=== PATIENT | male | born 1980 | race Caucasian/White ===

== ENCOUNTER 2017-03-02 07:35 | Inpatient (IN) | payer OTHER ==
[~2017-03-02] VITALS: Ht 180.3 cm; Wt 119.3 kg
[2017-03-02] VITALS (11 sets, daily range): BP systolic 144–181; BP diastolic 25–105
[~2017-03-02 07:35] MED LIST: CATAFLAM50 MG PO; NAPROSYN500 MG PO; ROBAXIN750 MG PO; VICODIN 5/500 505 MG PO
--- NOTE | 2017-03-02 08:29 | NUR ---
324 ASPIRIN AND 1" NITRO PASTE (LEFT CHEST) ADMINITERED AT THIS TIME. PT RATES PAIN 6/10 AT THIS TIME.
[2017-03-02 08:35] LABS: HEMATOCRIT 46.2 % (42.0-52.0); MEAN CELL VOLUME 89.4 fl (80.0-94.0); MEAN CORPUSCULAR HGB 30.9 pg (27.0-31.0); MEAN CORPUSCULAR HGB CONC 34.6 g/dl (33.0-37.0); MEAN PLATELET VOLUME 9.1 fl (9.6-12.3); PLATELET COUNT AUTOMATED 318 10*3/uL (130-400); RED BLOOD COUNT 5.17 10*6/uL (4.50-5.90); RED CELL DISTRI WIDTH 13.4 % (0-14.5); WHITE BLOOD COUNT 18.8 10*3/uL (4.8-10.8)
--- NOTE | 2017-03-02 08:40 | NUR ---
PT STATES RATES CHEST PAIN 4/10 AT THIS TIME. PT STATES THAT "IT'S GETTING BETTER AFTER THE ASPIRIN AND NITRO PASTE.
[2017-03-02 08:44] LABS: ACT PARTIAL THROMBO TIME 22.8 SECONDS (20.8-31.5)
[2017-03-02 08:51] LABS: ALBUMIN 4.1 gm/dl (3.1-4.5); ALKALINE PHOSPHATASE 96 U/L (45-117); BUN 14 mg/dl (7-24); CHLORIDE 105 mmol/L (98-107); CREATININE 1.09 mg/dL (0.70-1.30); POTASSIUM 3.7 mmol/L (3.5-5.1); SGOT/AST 25 IU/L (3-35); SGPT/ALT 46 U/L (12-78); SODIUM 137 mmol/L (136-145); TOTAL PROTEIN 8.7 gm/dL (6.4-8.2)
[2017-03-02 08:52] LABS: TROPONIN I 0.016 ng/ml (<0.045)
--- NOTE | 2017-03-02 08:54 | NUR ---
BP PRIOR TO LOPRESSOR ADMINISTRATION IS 158/97 WITH HR OF 129.
[2017-03-02 08:55] LABS: BASOPHILS 2 % (0-1); TOTAL CELLS COUNTED 100 #CELLS
[2017-03-02 08:56] LABS: PLATELET SUFFICIENCY NORMAL (NORMAL)
--- NOTE | 2017-03-02 10:15 | NUR ---
Time: 1014 A 36 year old MALE admitted to under services of KATE RYAN DO. Pt. arrived via bed from ER. Chief complaint: CHEST PAIN. HAIM BLACKMON
--- NOTE | 2017-03-02 10:20 | NUR ---
PATIENT COMPLAINING OF MIDSTERNAL CHEST PRESSURE AND SHORTNESS OF BREATH. NOTIFIED LITO DARLING & ORDER OBTAINED FOR MORPHINE & CARIDOLOGY CONSULT. MORPHINE GIVEN@ THIS TIME & PAGED CARDIOLOGY.
--- NOTE | 2017-03-02 11:00 | NUR ---
PATIENT MUCH MORE RELAXED AT THIS TIME HR DOWN TO 110. BP 140/88.
[2017-03-02 11:21] LABS: BILIRUBIN 1+ (NEGATIVE); BLOOD 1+ (NEGATIVE); CLARITY CLEAR (CLEAR); COLOR YELLOW (YELLOW); GLUCOSE NEGATIVE (NEGATIVE); KETONE 2+ (NEGATIVE); LEUKO ESTERASE NEGATIVE (NEGATIVE); NITRITE NEGATIVE (NEGATIVE); PH 5.5 (5.0-9.0); SPECIFIC GRAVITY >= 1.030 (1.005-1.030); UROBILINOGEN 0.2 E.U./dl (0.2-1.0)
[2017-03-02 11:28] LABS: BACTERIA TRACE; EPITHELIAL CELLS 0-2; URINE AMPHETAMINES > 1000 (1000ng/ml); URINE BARBITURATES < 200 (200ng/ml); URINE BENZODIAZEPINES < 200 (200ng/ml); URINE CANNABINOIDS (THC) < 50 (50ng/ml); URINE COCAINE > 300 (300ng/ml); URINE METHADONE < 300 (300ng/ml); URINE OPIATES > 300 (300ng/ml)
[2017-03-02 11:29] LABS: URINE PHENCYCLIDINE < 25 (25ng/ml)
--- NOTE | 2017-03-02 13:14 | NUR ---
HEARTRATE DOWN TO 100 @ THIS TIME; BLOOD PRESSURE 144/90. METOPROLOL EFFECTIVE
--- NOTE | 2017-03-02 16:00 | NUR ---
PATIENT MEDICATED WITH IV ATIVAN PER ORDER FOR SYMPTOMS OF AGITATION. PATIENT STILL VERY RESTLESS AND COMPLAINING OF CHEST PRESSURE AND "HEART RACING". WILL MONITOR.
--- NOTE | 2017-03-02 16:15 | NUR ---
PATIENT'S HR DOWN TO 100 @ THIS TIME AND PT MUCH MORE RELAXED.
[2017-03-03] VITALS: BP 119/80
--- NOTE | 2017-03-03 03:04 | NUR ---
PT RESTING IN BED WITH EYES CLOSED RESPS EASY AND NONLABORED WITH NO S/S OF DISTRESS CALL LIGHT WITH IN REACH
[2017-03-03 04:00] VITALS: BP 125/77
[2017-03-03 07:32] LABS: BASO # 0.1 10*3/uL (0.0-0.1); BASO % 0.8 % (0.0-1.0); EOS # 0.2 10*3/uL (0.0-0.4); EOS % 2.4 % (1.0-4.0); HEMATOCRIT 42.6 % (42.0-52.0); HEMOGLOBIN 14.5 g/dl (14.0-18.0); LYMPH # 2.2 10*3/uL (1.3-4.4); LYMPH % 24.7 % (27.0-41.0); MEAN CORPUSCULAR HGB 31.5 pg (27.0-31.0); MEAN PLATELET VOLUME 9.5 fl (9.6-12.3); MONO % 10.9 % (3.0-9.0); NEUT # 5.4 10*3/uL (2.3-7.9); NEUT % 59.8 % (47.0-73.0); RED CELL DISTRI WIDTH 13.5 % (0-14.5)
[2017-03-03 07:40] LABS: MEAN CELL VOLUME 92.6 fl (80.0-94.0); PLATELET COUNT AUTOMATED 210 10*3/uL (130-400)
[2017-03-03 07:53] LABS: ALBUMIN 3.5 gm/dl (3.1-4.5); ALKALINE PHOSPHATASE 80 U/L (45-117); BUN 12 mg/dl (7-24); CHLORIDE 104 mmol/L (98-107); CHOLESTEROL 157 mg/dL (<200); CREATININE 0.84 mg/dL (0.70-1.30); HDL CHOLESTEROL 45 mg/dl (40-60); LDL CHOLESTEROL 70 mg/dL (9-159); POTASSIUM 3.4 mmol/L (3.5-5.1); SGOT/AST 37 IU/L (3-35); SGPT/ALT 41 U/L (12-78); SODIUM 138 mmol/L (136-145); TOTAL PROTEIN 7.3 gm/dL (6.4-8.2); TRIGLYCERIDES 210 mg/dl (<150); VLDL CHOLESTEROL 42 mg/dL (6-40)
[2017-03-03 07:59] LABS: FREE T4 1.36 ng/dl (0.76-1.46)
[2017-03-03 08:00] VITALS: BP 119/72
--- NOTE | 2017-03-03 08:30 | NUR ---
Purchasing Contracting Clerk in to talk to patient. Patient states lives at HOME ALONE with . There are 15 steps in the home. Physician: NO PCP Pharmacy: [facility] [place] Home health services: NONE Patient's level of ADLs: INDEPENDENT Patient has working utilities: YES DME: NONE Follow-up physician's appointment after d/c: WILL BE MADE PRIOR TO DC Does patient want to access PORTAL?: Discharge plan HOME. FITO GORDON PT ASKING DOCTOR FOR INFO ON OUTPT REHABS. LEFT MESSAGE FOR SHANNAN IN [facility] TO SEE HIM.
[2017-03-03 08:31] LABS: VITAMIN D, 25-HYDROXY 9.5 ng/mL (30-100)
--- NOTE | 2017-03-03 11:12 | NUR ---
Discharge instructions reviewed with patient/family. Patient receptive and verbalizes understanding. Follow-up care arranged. Written instructions given to patient/family. RICHARD LOW
[2017-03-03] MEDS ORDERED: VITAMIN D50000 UNIT PO (12:08)
== END 2017-03-03 11:12 | disposition home or self-care (01) | DRG 918 ==
LOC: ED 07:35 → 4E 09:12 → EDHOLD 09:12 → 4E 09:21
PROVIDERS: Emergency Medicine; Registered Nurse; ADMIT Emergency Medicine
DX: T40.5X1A Poisoning by cocaine, accidental (unintentional), initial encounter (principal); R65.10 Systemic inflammatory response syndrome (SIRS) of non-infectious origin without acute organ dysfunction; F14.10 Cocaine abuse, uncomplicated; R03.0 Elevated blood-pressure reading, without diagnosis of hypertension; R73.9 Hyperglycemia, unspecified; E55.9 Vitamin D deficiency, unspecified; F41.9 Anxiety disorder, unspecified; E66.09 Other obesity due to excess calories; F15.90 Other stimulant use, unspecified, uncomplicated; F12.10 Cannabis abuse, uncomplicated; R00.0 Tachycardia, unspecified; R07.89 Other chest pain; Z72.89 Other problems related to lifestyle; Z82.49 Family history of ischemic heart disease and other diseases of the circulatory system; Z83.3 Family history of diabetes mellitus; Y92.098 Other place in other non-institutional residence as the place of occurrence of the external cause; Z68.36 Body mass index [BMI] 36.0-36.9, adult

== ENCOUNTER 2018-01-18 16:22 | Emergency (ER) | payer OTHER ==
[~2018-01-18] VITALS: Ht 180.3 cm; Wt 108.9 kg
[~2018-01-18 16:22] MED LIST changes: +DELTASONE20 M1 PO; +ELIMITE 5%60 GM T; +VITAMIN D50000 UNIT PO
[2018-01-18] MEDS ORDERED: KENALOG 0.1%80 GM T (18:15)
== END 2018-01-18 18:21 | disposition home or self-care (01) ==
LOC: ED 16:22
DX: L25.3 Unspecified contact dermatitis due to other chemical products (principal); Z79.899 Other long term (current) drug therapy; Z98.890 Other specified postprocedural states

== ENCOUNTER 2018-01-22 01:03 | Emergency (ER) | payer OTHER ==
[~2018-01-22] VITALS: Ht 180.3 cm; Wt 127.0 kg
--- NOTE | ~2018-01-22 | EKG ---
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
[~2018-01-22 01:03] MED LIST changes: +KENALOG 0.1%80 GM T
[2018-01-22 01:44] LABS: BASO # 0.1 10*3/uL (0.0-0.1); BASO % 0.8 % (0.0-1.0); EOS # 0.1 10*3/uL (0.0-0.4); EOS % 0.6 % (1.0-4.0); HEMATOCRIT 43.8 % (42.0-52.0); LYMPH # 2.4 10*3/uL (1.3-4.4); LYMPH % 16.1 % (27.0-41.0); MEAN CELL VOLUME 90.5 fl (80.0-94.0); MEAN CORPUSCULAR HGB CONC 34.2 g/dl (33.0-37.0); MEAN PLATELET VOLUME 9.3 fl (9.6-12.3); MONO # 1.5 10*3/uL (0.1-1.0); MONO % 10.1 % (3.0-9.0); NEUT # 10.7 10*3/uL (2.3-7.9); NEUT % 70.9 % (47.0-73.0); PLATELET COUNT AUTOMATED 340 10*3/uL (130-400); RED BLOOD COUNT 4.84 10*6/uL (4.50-5.90); RED CELL DISTRI WIDTH 13.2 % (0-14.5); WHITE BLOOD COUNT 15.1 10*3/uL (4.8-10.8)
[2018-01-22 01:53] LABS: INTERNATIONAL NORM RATIO 1.1 (2.0-3.5)
[2018-01-22 02:01] LABS: ALBUMIN 4.1 gm/dl (3.1-4.5); ALKALINE PHOSPHATASE 85 U/L (45-117); BUN 15 mg/dl (7-24); CHLORIDE 107 mmol/L (98-107); CREATININE 0.97 mg/dL (0.70-1.30); POTASSIUM 3.5 mmol/L (3.5-5.1); SGOT/AST 33 IU/L (3-35); SGPT/ALT 55 U/L (12-78); SODIUM 141 mmol/L (136-145); TOTAL PROTEIN 9.1 gm/dL (6.4-8.2)
[2018-01-22 02:02] LABS: PLATELET SUFFICIENCY NORMAL (NORMAL); TOTAL CELLS COUNTED 100 #CELLS
[2018-01-22 02:03] LABS: TROPONIN I < 0.015 ng/ml (<0.045)
[2018-01-22 02:23] LABS: URINE AMPHETAMINES > 1000 (1000ng/ml); URINE BARBITURATES < 200 (200ng/ml); URINE BENZODIAZEPINES < 200 (200ng/ml); URINE CANNABINOIDS (THC) > 50 (50ng/ml); URINE COCAINE < 300 (300ng/ml); URINE METHADONE < 300 (300ng/ml); URINE OPIATES < 300 (300ng/ml); URINE PHENCYCLIDINE < 25 (25ng/ml)
== END 2018-01-22 04:42 | disposition home or self-care (01) ==
LOC: ED 01:03
PROVIDERS: Emergency Medicine
DX: E86.0 Dehydration (principal); T43.625A Adverse effect of amphetamines, initial encounter; R00.0 Tachycardia, unspecified; E66.9 Obesity, unspecified; Z79.899 Other long term (current) drug therapy; Y92.89 Other specified places as the place of occurrence of the external cause

== ENCOUNTER 2018-08-25 05:35 | Emergency (ER) | payer OTHER ==
[~2018-08-25] VITALS: Ht 185.4 cm; Wt 136.1 kg
[2018-08-25 06:57] LABS: BILIRUBIN NEGATIVE (NEGATIVE); BLOOD NEGATIVE (NEGATIVE); CLARITY CLEAR (CLEAR); COLOR YELLOW (YELLOW); GLUCOSE NEGATIVE (NEGATIVE); KETONE NEGATIVE (NEGATIVE); LEUKO ESTERASE NEGATIVE (NEGATIVE); NITRITE NEGATIVE (NEGATIVE); PH 5.5 (5.0-9.0); SPECIFIC GRAVITY <= 1.005 (1.005-1.030); UROBILINOGEN 0.2 E.U./dl (0.2-1.0)
[2018-08-25 07:04] LABS: BACTERIA TRACE; RBC 0-2 rbc/hpf (0-2); URINE AMPHETAMINES < 1000 (1000ng/ml); URINE BARBITURATES < 200 (200ng/ml); URINE BENZODIAZEPINES < 200 (200ng/ml); URINE CANNABINOIDS (THC) < 50 (50ng/ml); URINE COCAINE < 300 (300ng/ml); URINE METHADONE < 300 (300ng/ml); URINE OPIATES < 300 (300ng/ml)
[2018-08-25 07:09] LABS: URINE PHENCYCLIDINE < 25 (25ng/ml)
[2018-08-25 09:16] LABS: BASO # 0.1 10*3/uL (0.0-0.1); BASO % 1.1 % (0.0-1.0); EOS # 0.4 10*3/uL (0.0-0.4); HEMATOCRIT 44.3 % (42.0-52.0); HEMOGLOBIN 15.3 g/dl (14.0-18.0); LYMPH # 3.2 10*3/uL (1.3-4.4); LYMPH % 32.3 % (27.0-41.0); MEAN CELL VOLUME 92.5 fl (80.0-94.0); MEAN CORPUSCULAR HGB 31.9 pg (27.0-31.0); MEAN CORPUSCULAR HGB CONC 34.5 g/dl (33.0-37.0); MEAN PLATELET VOLUME 9.1 fl (9.6-12.3); MONO # 0.7 10*3/uL (0.1-1.0); MONO % 6.9 % (3.0-9.0); NEUT # 5.2 10*3/uL (2.3-7.9); NEUT % 52.7 % (47.0-73.0); PLATELET COUNT AUTOMATED 248 10*3/uL (130-400); RED BLOOD COUNT 4.79 10*6/uL (4.50-5.90); RED CELL DISTRI WIDTH 13.5 % (0-14.5)
[2018-08-25 09:30] LABS: ALBUMIN 3.5 gm/dl (3.1-4.5); ALKALINE PHOSPHATASE 90 U/L (45-117); BUN 6 mg/dl (7-24); CHLORIDE 105 mmol/L (98-107); CREATININE 0.85 mg/dL (0.70-1.30); POTASSIUM 3.9 mmol/L (3.5-5.1); SGOT/AST 54 IU/L (3-35); SGPT/ALT 73 U/L (12-78); SODIUM 140 mmol/L (136-145); TOTAL PROTEIN 7.6 gm/dL (6.4-8.2)
[2018-08-25 09:31] LABS: ACETAMINOPHEN (TYLENOL) < 5.0 ug/ml (10-30)
== END 2018-08-25 18:51 | disposition home or self-care (01) ==
LOC: ED 05:35
PROVIDERS: Student in an Organized Health Care Education/Training Program
DX: F10.10 Alcohol abuse, uncomplicated (principal); R45.851 Suicidal ideations; E78.00 Pure hypercholesterolemia, unspecified; E66.01 Morbid (severe) obesity due to excess calories; F12.10 Cannabis abuse, uncomplicated; F17.200 Nicotine dependence, unspecified, uncomplicated; F14.10 Cocaine abuse, uncomplicated; Y90.9 Presence of alcohol in blood, level not specified

== ENCOUNTER 2018-10-03 14:17 | Emergency (ER) | payer OTHER ==
[~2018-10-03] VITALS: Ht 180.3 cm; Wt 127.0 kg
--- NOTE | ~2018-10-03 | EKG ---
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
--- NOTE | ~2018-10-03 | EKG ---
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
[2018-10-03 14:48] LABS: BASO # 0.1 10*3/uL (0.0-0.1); BASO % 1.1 % (0.0-1.0); EOS # 0.2 10*3/uL (0.0-0.4); EOS % 1.9 % (1.0-4.0); HEMATOCRIT 45.5 % (42.0-52.0); HEMOGLOBIN 15.6 g/dl (14.0-18.0); LYMPH # 1.4 10*3/uL (1.3-4.4); LYMPH % 13.5 % (27.0-41.0); MEAN CELL VOLUME 92.5 fl (80.0-94.0); MEAN CORPUSCULAR HGB 31.7 pg (27.0-31.0); MEAN CORPUSCULAR HGB CONC 34.3 g/dl (33.0-37.0); MEAN PLATELET VOLUME 9.1 fl (9.6-12.3); MONO # 0.9 10*3/uL (0.1-1.0); MONO % 8.9 % (3.0-9.0); NEUT # 7.6 10*3/uL (2.3-7.9); NEUT % 72.8 % (47.0-73.0); PLATELET COUNT AUTOMATED 325 10*3/uL (130-400); RED BLOOD COUNT 4.92 10*6/uL (4.50-5.90); RED CELL DISTRI WIDTH 13.4 % (0-14.5); WHITE BLOOD COUNT 10.4 10*3/uL (4.8-10.8)
[2018-10-03 14:51] LABS: BILIRUBIN 1+ (NEGATIVE); BLOOD NEGATIVE (NEGATIVE); CLARITY SL CLOUDY (CLEAR); COLOR YELLOW (YELLOW); GLUCOSE NEGATIVE (NEGATIVE); KETONE 1+ (NEGATIVE); LEUKO ESTERASE NEGATIVE (NEGATIVE); NITRITE NEGATIVE (NEGATIVE); PH 5.5 (5.0-9.0); SPECIFIC GRAVITY >= 1.030 (1.005-1.030)
[2018-10-03 14:59] LABS: BACTERIA TRACE; MUCOUS 3+; WBC 0-2 wbc/hpf (0-5)
[2018-10-03 15:02] LABS: ACT PARTIAL THROMBO TIME 23.6 SECONDS (20.0-32.1)
[2018-10-03 15:03] LABS: ALBUMIN 3.9 gm/dl (3.1-4.5); ALKALINE PHOSPHATASE 113 U/L (45-117); BUN 6 mg/dl (7-24); CHLORIDE 107 mmol/L (98-107); LIPASE 69 U/L (73-393); POTASSIUM 3.9 mmol/L (3.5-5.1); SGOT/AST 76 IU/L (3-35); SGPT/ALT 110 U/L (12-78); SODIUM 140 mmol/L (136-145); TOTAL PROTEIN 8.4 gm/dL (6.4-8.2); TROPONIN I < 0.015 ng/ml (<0.045)
[2018-10-03 15:07] LABS: URINE AMPHETAMINES < 1000 (1000ng/ml); URINE BARBITURATES < 200 (200ng/ml); URINE BENZODIAZEPINES < 200 (200ng/ml); URINE CANNABINOIDS (THC) > 50 (50ng/ml); URINE COCAINE > 300 (300ng/ml); URINE METHADONE < 300 (300ng/ml); URINE OPIATES < 300 (300ng/ml)
[2018-10-03 15:08] LABS: URINE PHENCYCLIDINE < 25 (25ng/ml)
== END 2018-10-03 18:21 | disposition home or self-care (01) ==
LOC: ED 14:17
PROVIDERS: Nurse Practitioner Family
DX: E86.0 Dehydration (principal); F41.9 Anxiety disorder, unspecified; F19.10 Other psychoactive substance abuse, uncomplicated; R06.02 Shortness of breath; F12.90 Cannabis use, unspecified, uncomplicated; F15.90 Other stimulant use, unspecified, uncomplicated; F17.200 Nicotine dependence, unspecified, uncomplicated

== ENCOUNTER 2018-10-28 01:28 | Emergency (ER) | payer OTHER ==
[~2018-10-28] VITALS: Ht 175.2 cm; Wt 92.5 kg
== END 2018-10-28 03:00 | disposition home or self-care (01) ==
LOC: ED 01:28
DX: F41.1 Generalized anxiety disorder (principal); F43.0 Acute stress reaction; L30.9 Dermatitis, unspecified; E78.00 Pure hypercholesterolemia, unspecified; E66.01 Morbid (severe) obesity due to excess calories; F12.10 Cannabis abuse, uncomplicated; F14.10 Cocaine abuse, uncomplicated; F15.90 Other stimulant use, unspecified, uncomplicated; F17.200 Nicotine dependence, unspecified, uncomplicated

== ENCOUNTER 2019-05-02 21:37 | Emergency (ER) | payer OTHER ==
[~2019-05-02] VITALS: Ht 180.3 cm; Wt 127.0 kg
[2019-05-02 22:17] LABS: HEMATOCRIT 52.3 % (42.0-52.0); HEMOGLOBIN 17.8 g/dl (14.0-18.0); MEAN CELL VOLUME 91.8 fl (80.0-94.0); MEAN CORPUSCULAR HGB 31.2 pg (27.0-31.0); MEAN PLATELET VOLUME 8.8 fl (9.6-12.3); PLATELET COUNT AUTOMATED 255 10*3/uL (130-400); RED CELL DISTRI WIDTH 14.3 % (0-14.5); WHITE BLOOD COUNT 15.1 10*3/uL (4.8-10.8)
[2019-05-02 22:26] LABS: ACT PARTIAL THROMBO TIME 23.8 SECONDS (20.0-32.1)
[2019-05-02 22:32] LABS: ALKALINE PHOSPHATASE 111 U/L (45-117); BUN 9 mg/dl (7-24); CHLORIDE 105 mmol/L (98-107); CREATININE 1.17 mg/dL (0.70-1.30); SGPT/ALT 85 U/L (12-78); SODIUM 137 mmol/L (136-145)
[2019-05-02 22:35] LABS: SGOT/AST 62 IU/L (3-35); TROPONIN I < 0.015 ng/ml (<0.045)
[2019-05-02 22:36] LABS: PLATELET SUFFICIENCY NORMAL (NORMAL); TOTAL CELLS COUNTED 100 #CELLS
[2019-05-03 00:58] LABS: URINE AMPHETAMINES > 1000 (1000ng/ml); URINE BARBITURATES < 200 (200ng/ml); URINE BENZODIAZEPINES < 200 (200ng/ml); URINE CANNABINOIDS (THC) > 50 (50ng/ml); URINE COCAINE < 300 (300ng/ml); URINE METHADONE < 300 (300ng/ml); URINE OPIATES < 300 (300ng/ml); URINE PHENCYCLIDINE < 25 (25ng/ml)
== END 2019-05-03 01:56 | disposition home or self-care (01) ==
LOC: ED 21:37
PROVIDERS: Emergency Medicine
DX: F15.920 Other stimulant use, unspecified with intoxication, uncomplicated (principal); R07.89 Other chest pain; F12.90 Cannabis use, unspecified, uncomplicated; E78.00 Pure hypercholesterolemia, unspecified; E66.01 Morbid (severe) obesity due to excess calories; F19.10 Other psychoactive substance abuse, uncomplicated

== ENCOUNTER 2019-05-11 15:45 | Emergency (ER) | payer OTHER ==
[~2019-05-11] VITALS: Ht 180.3 cm; Wt 129.3 kg
== END 2019-05-11 18:00 | disposition home or self-care (01) ==
LOC: ED 15:45
DX: S01.81XA Laceration without foreign body of other part of head, initial encounter (principal); E78.00 Pure hypercholesterolemia, unspecified; E66.01 Morbid (severe) obesity due to excess calories; Y04.2XXA Assault by strike against or bumped into by another person, initial encounter; Y93.89 Activity, other specified; Y92.89 Other specified places as the place of occurrence of the external cause; Y99.8 Other external cause status

== ENCOUNTER 2019-08-26 02:49 | Inpatient (IN) | payer OTHER ==
[~2019-08-26] VITALS: Ht 180.3 cm; Wt 129.7 kg
[2019-08-26 02:58] VITALS: BP 145/99
--- NOTE | 2019-08-26 03:37 | NUR ---
PT REQUESTING "SOMETHING TO HELP ME RELAX" DR ROTH MADE AWARE. WILL CONTINUE TO MONITOR.
[2019-08-26 03:39] LABS: HEMATOCRIT 46.7 % (42.0-52.0); MEAN CELL VOLUME 88.6 fl (80.0-94.0); MEAN CORPUSCULAR HGB 30.9 pg (27.0-31.0); MEAN CORPUSCULAR HGB CONC 34.9 g/dl (33.0-37.0); MEAN PLATELET VOLUME 9.5 fl (9.6-12.3); PLATELET COUNT AUTOMATED 353 10*3/uL (130-400); RED BLOOD COUNT 5.27 10*6/uL (4.50-5.90); RED CELL DISTRI WIDTH 13.7 % (0-14.5); WHITE BLOOD COUNT 22.7 10*3/uL (4.8-10.8)
[2019-08-26 03:49] LABS: ACT PARTIAL THROMBO TIME 25.9 SECONDS (20.0-32.1)
[2019-08-26 03:56] LABS: ACETAMINOPHEN (TYLENOL) < 5.0 ug/ml (10-30)
[2019-08-26 03:57] LABS: ALBUMIN 4.3 gm/dl (3.1-4.5); ALKALINE PHOSPHATASE 96 U/L (45-117); BUN 9 mg/dl (7-24); CHLORIDE 101 mmol/L (98-107); CREATININE 1.36 mg/dL (0.70-1.30); POTASSIUM 4.2 mmol/L (3.5-5.1); SGOT/AST 59 IU/L (3-35); SGPT/ALT 88 U/L (12-78); SODIUM 132 mmol/L (136-145); TOTAL PROTEIN 9.2 gm/dL (6.4-8.2)
[2019-08-26 03:59] LABS: TROPONIN I < 0.015 ng/ml (<0.045)
[2019-08-26 04:23] LABS: PLATELET SUFFICIENCY NORMAL (NORMAL); POLYCHROMASIA SLIGHT; TOTAL CELLS COUNTED 100 #CELLS
[2019-08-26 04:36] LABS: URINE AMPHETAMINES < 1000 (1000ng/ml); URINE BARBITURATES < 200 (200ng/ml); URINE BENZODIAZEPINES < 200 (200ng/ml); URINE CANNABINOIDS (THC) > 50 (50ng/ml); URINE COCAINE > 300 (300ng/ml); URINE METHADONE < 300 (300ng/ml); URINE OPIATES < 300 (300ng/ml)
[2019-08-26 04:44] LABS: BILIRUBIN NEGATIVE (NEGATIVE); CLARITY CLEAR (CLEAR); COLOR YELLOW (YELLOW); GLUCOSE 2+ (NEGATIVE); KETONE 1+ (NEGATIVE)
[2019-08-26 04:45] LABS: BACTERIA TRACE; BLOOD 3+ (NEGATIVE); LEUKO ESTERASE NEGATIVE (NEGATIVE); NITRITE NEGATIVE (NEGATIVE); RBC 0-2 rbc/hpf (0-2); UROBILINOGEN 0.2 E.U./dl (0.2-1.0); WBC 0-2 wbc/hpf (0-5)
[2019-08-26 04:46] LABS: URINE PHENCYCLIDINE < 25 (25ng/ml)
--- NOTE | 2019-08-26 06:16 | NUR ---
PT REMOVED IV STARTED BY EMS, SITE SECURED WITH GAUZE. THIS RN PLACED 20G IV IN LFA. PT TOLERATED WELL. PT CONTINUES TO REPORT FEELING ANXIOUS AND HAVING SOME CHEST PAIN. PT RESTING ON CART ON L SIDE WITH EYES CLOSED. RESPIRATIONS EVEN AND UNLABORED. CALL LIGHT IN REACH. WILL CONTINUE TO MONITOR.
[2019-08-26 06:19] VITALS: BP 125/78
--- NOTE | 2019-08-26 07:09 | NUR ---
REPORT TO STACIE HERNANDEZ
--- NOTE | 2019-08-26 07:12 | NUR ---
PT REPORT ACCEPTED. PT RESTING WITH EYES CLOSED. NO VOICED COMPLAINTS. VITALS STABLE ALTHOUGH TACHYCARDIA REMAINS. DESPTE BED ASSIGNMENT IN ICCU, PT TO REMAIN IN E.D. FOR THE TIME BEING PER WAREHOUSE RECORD CLERK TO ACCOMODATE STAFFING.
[2019-08-26 07:25] VITALS: BP 131/71
--- NOTE | 2019-08-26 07:45 | NUR ---
NIORVASC DOSING NOT YET AVAILIBLE. THIS INFORMATION PROVIDED IN MY NURSE REPOR T TO ICU.
[2019-08-26 08:15] VITALS: BP 159/105
--- NOTE | 2019-08-26 08:15 | NUR ---
A 38, admitted to ICCU, under the services of ALEXANDRA Jerez DO with a diagnosis of CHEST PAIN. Chief complaint is CHEST PAIN AFTER DOING COCAINE. Patient arrived via wheel chair from ER. Monitor applied. Initial assessment completed. Vital signs taken and recorded. ALEXANDRA JEREZ DO notified of admission to the unit. Orders received. See assessment for past medical history, medications and allergies. Patient and/or family oriented to unit. [facility] ICCU visitation policy reviewed. Clothing/patient valuable form completed. ASHLIE KAISER
--- NOTE | 2019-08-26 10:00 | NUR ---
DENIES ANY FURTHER CHEST PAIN AT THIS TIME.
--- NOTE | 2019-08-26 11:24 | NUR ---
[facility] MADE AWARE OF CONSULT
[2019-08-26 12:00] VITALS: BP 105/58
[2019-08-26] MEDS ORDERED: ASPIRIN ADULT L81 M1 PO (13:15)
[2019-08-26] MEDS ORDERED: LIPITOR40 MG PO (13:15)
--- NOTE | 2019-08-26 16:20 | NUR ---
Discharge instructions reviewed with patient/family. Patient receptive and verbalizes understanding. Follow-up care arranged. Written instructions given to patient/family. INSTRUCTED TO FOLLOW UP WITH CARDIOLOGY NEXT WEEK. SCRIPTS FOR ASA AND LIPITOR SENT TO PHARMACY. ASHLIE KAISER
== END 2019-08-26 16:20 | disposition home or self-care (01) | DRG 816 ==
LOC: ED 02:49 → EDHOLD 06:00 → ICCU 06:32
PROVIDERS: Emergency Medicine Emergency Medical Services; ADMIT Internal Medicine
DX: T40.5X1A Poisoning by cocaine, accidental (unintentional), initial encounter (principal); R07.89 Other chest pain; Y92.89 Other specified places as the place of occurrence of the external cause; N17.0 Acute kidney failure with tubular necrosis; I47.1 Supraventricular tachycardia; F14.10 Cocaine abuse, uncomplicated; F41.9 Anxiety disorder, unspecified; E78.00 Pure hypercholesterolemia, unspecified; R65.10 Systemic inflammatory response syndrome (SIRS) of non-infectious origin without acute organ dysfunction; E87.1 Hypo-osmolality and hyponatremia; R73.9 Hyperglycemia, unspecified; R74.0 Nonspecific elevation of levels of transaminase and lactic acid dehydrogenase [LDH]; F17.220 Nicotine dependence, chewing tobacco, uncomplicated; E66.9 Obesity, unspecified; Z68.39 Body mass index [BMI] 39.0-39.9, adult; Z82.49 Family history of ischemic heart disease and other diseases of the circulatory system; Z83.3 Family history of diabetes mellitus; Z80.1 Family history of malignant neoplasm of trachea, bronchus and lung; Z79.82 Long term (current) use of aspirin; Z79.899 Other long term (current) drug therapy; Z71.6 Tobacco abuse counseling

== ENCOUNTER 2020-04-13 08:26 | Observation (INO) | payer OTHER ==
[~2020-04-13] VITALS: Ht 180.3 cm; Wt 121.3 kg
[2020-04-13] VITALS (15 sets, daily range): BP systolic 137–172; BP diastolic 86–106
[~2020-04-13 08:26] MED LIST changes: +ASPIRIN ADULT L81 M1 PO; +LIPITOR40 MG PO
[2020-04-13 08:48] LABS: BASO # 0.1 10*3/uL (0.0-0.1); BASO % 0.7 % (0.0-1.0); EOS % 0.1 % (1.0-4.0); HEMATOCRIT 47.6 % (42.0-52.0); LYMPH # 1.9 10*3/uL (1.3-4.4); LYMPH % 13.7 % (27.0-41.0); MEAN CELL VOLUME 88.5 fl (80.0-94.0); MEAN CORPUSCULAR HGB 30.3 pg (27.0-31.0); MEAN CORPUSCULAR HGB CONC 34.2 g/dl (33.0-37.0); MEAN PLATELET VOLUME 8.6 fl (9.6-12.3); MONO # 1.1 10*3/uL (0.1-1.0); MONO % 7.8 % (3.0-9.0); NEUT # 10.5 10*3/uL (2.3-7.9); NEUT % 76.8 % (47.0-73.0); PLATELET COUNT AUTOMATED 302 10*3/uL (130-400); RED BLOOD COUNT 5.38 10*6/uL (4.50-5.90); WHITE BLOOD COUNT 13.6 10*3/uL (4.8-10.8)
[2020-04-13 09:00] LABS: ACT PARTIAL THROMBO TIME 24.8 SECONDS (20.0-32.1)
[2020-04-13 09:04] LABS: ALKALINE PHOSPHATASE 110 U/L (45-117); BUN 7 mg/dl (7-24); CHLORIDE 105 mmol/L (98-107); POTASSIUM 3.7 mmol/L (3.5-5.1); SGOT/AST 102 IU/L (3-35); SGPT/ALT 123 U/L (12-78); SODIUM 136 mmol/L (136-145); TOTAL PROTEIN 8.3 gm/dL (6.4-8.2)
[2020-04-13 09:06] LABS: TROPONIN I < 0.015 ng/ml (<0.045)
[2020-04-13 10:47] LABS: URINE AMPHETAMINES > 1000 (1000ng/ml); URINE BARBITURATES < 200 (200ng/ml); URINE BENZODIAZEPINES < 200 (200ng/ml); URINE CANNABINOIDS (THC) > 50 (50ng/ml); URINE COCAINE > 300 (300ng/ml); URINE METHADONE < 300 (300ng/ml); URINE OPIATES < 300 (300ng/ml)
[2020-04-13 10:49] LABS: URINE PHENCYCLIDINE < 25 (25ng/ml)
[2020-04-14 01:09] VITALS: BP 148/76
[2020-04-14 06:34] LABS: BASO # 0.1 10*3/uL (0.0-0.1); BASO % 0.9 % (0.0-1.0); EOS # 0.2 10*3/uL (0.0-0.4); EOS % 2.2 % (1.0-4.0); HEMATOCRIT 49.6 % (42.0-52.0); LYMPH # 2.5 10*3/uL (1.3-4.4); LYMPH % 24.7 % (27.0-41.0); MEAN CELL VOLUME 90.8 fl (80.0-94.0); MEAN CORPUSCULAR HGB 30.2 pg (27.0-31.0); MEAN CORPUSCULAR HGB CONC 33.3 g/dl (33.0-37.0); MEAN PLATELET VOLUME 9.3 fl (9.6-12.3); MONO # 1.1 10*3/uL (0.1-1.0); MONO % 10.8 % (3.0-9.0); NEUT # 6.1 10*3/uL (2.3-7.9); NEUT % 60.5 % (47.0-73.0); PLATELET COUNT AUTOMATED 281 10*3/uL (130-400); RED BLOOD COUNT 5.46 10*6/uL (4.50-5.90)
[2020-04-14 06:51] LABS: ALBUMIN 3.8 gm/dl (3.1-4.5); ALKALINE PHOSPHATASE 109 U/L (45-117); BUN 11 mg/dl (7-24); CHLORIDE 105 mmol/L (98-107); CHOLESTEROL 179 mg/dL (<200); CREATININE 0.92 mg/dL (0.70-1.30); FREE T4 1.44 ng/dl (0.76-1.46); HDL CHOLESTEROL 42 mg/dl (40-60); LDL CHOLESTEROL 88 mg/dL (9-159); POTASSIUM 3.2 mmol/L (3.5-5.1); SGOT/AST 88 IU/L (3-35); SGPT/ALT 100 U/L (12-78); SODIUM 138 mmol/L (136-145); TOTAL PROTEIN 8.1 gm/dL (6.4-8.2); TRIGLYCERIDES 243 mg/dl (<150); VLDL CHOLESTEROL 49 mg/dL (6-40)
[2020-04-14 07:35] LABS: VITAMIN D, 25-HYDROXY 9.4 ng/mL (30-100)
[2020-04-14 08:00] VITALS: BP 134/82
== END 2020-04-14 10:05 | disposition left against medical advice (07) ==
LOC: ED 08:26 → EDHOLD 11:42 → 5E 22:17
PROVIDERS: Registered Nurse; Student in an Organized Health Care Education/Training Program; ADMIT Family Medicine; ATTEND Family Medicine
DX: R07.89 Other chest pain (principal); F14.10 Cocaine abuse, uncomplicated; F15.10 Other stimulant abuse, uncomplicated; F12.10 Cannabis abuse, uncomplicated; R65.10 Systemic inflammatory response syndrome (SIRS) of non-infectious origin without acute organ dysfunction; R03.0 Elevated blood-pressure reading, without diagnosis of hypertension; E11.65 Type 2 diabetes mellitus with hyperglycemia; E78.00 Pure hypercholesterolemia, unspecified; E80.6 Other disorders of bilirubin metabolism; E66.9 Obesity, unspecified

== ENCOUNTER 2020-10-18 14:43 | Emergency (ER) | payer OTHER ==
[2020-10-18 15:41] LABS: HEMATOCRIT 38.5 % (42.0-52.0); MEAN CORPUSCULAR HGB 31.7 pg (27.0-31.0); MEAN CORPUSCULAR HGB CONC 34.8 g/dl (33.0-37.0); MEAN PLATELET VOLUME 8.8 fl (9.6-12.3); PLATELET COUNT AUTOMATED 188 10*3/uL (130-400); RED BLOOD COUNT 4.23 10*6/uL (4.50-5.90); RED CELL DISTRI WIDTH 13.2 % (0-14.5); WHITE BLOOD COUNT 6.5 10*3/uL (4.8-10.8)
[2020-10-18 16:07] LABS: ALBUMIN 3.4 gm/dl (3.1-4.5); ALKALINE PHOSPHATASE 76 U/L (45-117); BUN 6 mg/dl (7-24); CHLORIDE 108 mmol/L (98-107); CPK 128 U/L (39-308); CREATININE 0.74 mg/dL (0.70-1.30); POTASSIUM 3.7 mmol/L (3.5-5.1); SGOT/AST 69 IU/L (3-35); SGPT/ALT 78 U/L (12-78); SODIUM 138 mmol/L (136-145); TOTAL PROTEIN 7.1 gm/dL (6.4-8.2)
[2020-10-18 16:11] LABS: BASOPHILS 1 % (0-1); PLATELET SUFFICIENCY NORMAL (NORMAL); TOTAL CELLS COUNTED 100 #CELLS
[2020-10-18 16:26] LABS: URINE AMPHETAMINES < 1000 (1000ng/ml); URINE BARBITURATES < 200 (200ng/ml); URINE BENZODIAZEPINES < 200 (200ng/ml); URINE CANNABINOIDS (THC) > 50 (50ng/ml); URINE COCAINE < 300 (300ng/ml); URINE METHADONE < 300 (300ng/ml); URINE OPIATES < 300 (300ng/ml)
[2020-10-18 16:33] LABS: URINE PHENCYCLIDINE < 25 (25ng/ml)
== END 2020-10-19 08:38 ==
LOC: ED 14:43
PROVIDERS: Internal Medicine
DX: F43.21 Adjustment disorder with depressed mood (principal); Z20.822 Contact with and (suspected) exposure to COVID-19; F17.200 Nicotine dependence, unspecified, uncomplicated; Z79.82 Long term (current) use of aspirin; Z79.899 Other long term (current) drug therapy; Z96.22 Myringotomy tube(s) status; Z98.890 Other specified postprocedural states

== ENCOUNTER 2021-01-15 04:24 | Inpatient (IN) | payer OTHER ==
[~2021-01-15] VITALS: Ht 180.3 cm; Wt 122.7 kg
[~2021-01-15 04:24] MED LIST changes: +METFORMIN HYDR500 MG PO
[2021-01-15 04:26] VITALS: BP 167/90
[2021-01-15 04:48] LABS: BASO # 0.1 10*3/uL (0.0-0.1); BASO % 0.7 % (0.0-1.0); EOS # 0.1 10*3/uL (0.0-0.4); LYMPH # 3.6 10*3/uL (1.3-4.4); LYMPH % 27.1 % (27.0-41.0); MEAN CELL VOLUME 87.5 fl (80.0-94.0); MEAN CORPUSCULAR HGB 31.4 pg (27.0-31.0); MEAN CORPUSCULAR HGB CONC 35.9 g/dl (33.0-37.0); MEAN PLATELET VOLUME 9.3 fl (9.6-12.3); MONO # 1.1 10*3/uL (0.1-1.0); MONO % 8.2 % (3.0-9.0); NEUT # 8.2 10*3/uL (2.3-7.9); NEUT % 61.5 % (47.0-73.0); PLATELET COUNT AUTOMATED 323 10*3/uL (130-400); RED BLOOD COUNT 5.03 10*6/uL (4.50-5.90); RED CELL DISTRI WIDTH 12.7 % (0-14.5); WHITE BLOOD COUNT 13.4 10*3/uL (4.8-10.8)
[2021-01-15 05:03] LABS: ACT PARTIAL THROMBO TIME 24.8 SECONDS (20.0-32.1)
[2021-01-15 05:06] VITALS: BP 103/78
[2021-01-15 05:08] LABS: ALBUMIN 3.5 gm/dl (3.1-4.5); ALKALINE PHOSPHATASE 99 U/L (45-117); BUN 11 mg/dl (7-24); CHLORIDE 103 mmol/L (98-107); CREATININE 1.14 mg/dL (0.70-1.30); POTASSIUM 3.5 mmol/L (3.5-5.1); SGOT/AST 28 IU/L (3-35); SGPT/ALT 37 U/L (12-78); SODIUM 133 mmol/L (136-145); TOTAL PROTEIN 8.1 gm/dL (6.4-8.2)
[2021-01-15 05:11] LABS: TROPONIN I < 0.015 ng/ml (<0.045)
[2021-01-15 05:42] VITALS: BP 122/77
== END 2021-01-15 09:18 | disposition left against medical advice (07) | DRG 770 ==
LOC: ED 04:24 → EDHOLD 06:23
PROVIDERS: Emergency Medicine; ADMIT Family Medicine; ATTEND Family Medicine
DX: F15.10 Other stimulant abuse, uncomplicated (principal); R65.10 Systemic inflammatory response syndrome (SIRS) of non-infectious origin without acute organ dysfunction; E44.1 Mild protein-calorie malnutrition; E11.65 Type 2 diabetes mellitus with hyperglycemia; I10 Essential (primary) hypertension; E78.5 Hyperlipidemia, unspecified; F43.21 Adjustment disorder with depressed mood; F41.9 Anxiety disorder, unspecified; Z53.29 Procedure and treatment not carried out because of patient's decision for other reasons; Z82.49 Family history of ischemic heart disease and other diseases of the circulatory system; Z83.3 Family history of diabetes mellitus; Y92.89 Other specified places as the place of occurrence of the external cause; Z80.1 Family history of malignant neoplasm of trachea, bronchus and lung; Z79.899 Other long term (current) drug therapy

== ENCOUNTER 2021-03-28 12:34 | Emergency (ER) | payer OTHER ==
[~2021-03-28] VITALS: Wt 127.0 kg
== END 2021-03-28 15:25 | disposition home or self-care (01) ==
LOC: ED 12:34
DX: M25.572 Pain in left ankle and joints of left foot (principal)

== ENCOUNTER 2021-04-05 14:12 | Emergency (ER) | payer OTHER | END 2021-04-05 16:36 | disposition home or self-care (01) | LOC: ED 14:12 | DX: R51.9 Headache, unspecified (principal); Z20.822 Contact with and (suspected) exposure to COVID-19; E11.9 Type 2 diabetes mellitus without complications; I10 Essential (primary) hypertension; E78.5 Hyperlipidemia, unspecified ==

== ENCOUNTER 2021-04-07 11:40 | Emergency (ER) | payer OTHER ==
[~2021-04-07] VITALS: Ht 180.3 cm; Wt 127.0 kg
[2021-04-07 12:19] LABS: BASO # 0.1 10*3/uL (0.0-0.1); BASO % 0.7 % (0.0-1.0); EOS # 0.1 10*3/uL (0.0-0.4); HEMATOCRIT 46.4 % (42.0-52.0); LYMPH # 1.8 10*3/uL (1.3-4.4); LYMPH % 16.7 % (27.0-41.0); MEAN CELL VOLUME 88.4 fl (80.0-94.0); MEAN CORPUSCULAR HGB 31.4 pg (27.0-31.0); MEAN CORPUSCULAR HGB CONC 35.6 g/dl (33.0-37.0); MEAN PLATELET VOLUME 8.9 fl (9.6-12.3); MONO % 9.4 % (3.0-9.0); NEUT # 7.8 10*3/uL (2.3-7.9); NEUT % 70.9 % (47.0-73.0); PLATELET COUNT AUTOMATED 244 10*3/uL (130-400); RED BLOOD COUNT 5.25 10*6/uL (4.50-5.90); RED CELL DISTRI WIDTH 12.6 % (0-14.5)
[2021-04-07 12:30] LABS: ACT PARTIAL THROMBO TIME 25.6 SECONDS (20.0-32.1); INTERNATIONAL NORM RATIO 1.1 (2.0-3.5)
[2021-04-07 12:37] LABS: ALBUMIN 3.6 gm/dl (3.1-4.5); ALKALINE PHOSPHATASE 91 U/L (45-117); BUN 13 mg/dl (7-24); CHLORIDE 104 mmol/L (98-107); CREATININE 1.02 mg/dL (0.70-1.30); LIPASE 53 U/L (73-393); POTASSIUM 3.3 mmol/L (3.5-5.1); SGOT/AST 60 IU/L (3-35); SGPT/ALT 79 U/L (12-78); SODIUM 135 mmol/L (136-145); TOTAL PROTEIN 8.5 gm/dL (6.4-8.2)
[2021-04-07 13:13] LABS: BILIRUBIN 2+ (Negative); BLOOD Negative (Negative); CLARITY Cloudy (Clear); GLUCOSE 1+ (Negative); KETONE 2+ (Negative); LEUKO ESTERASE 1+ (Negative); NITRITE Positive (Negative); SPECIFIC GRAVITY >= 1.030 (1.001-1.030)
[2021-04-07 13:25] LABS: MUCOUS 3+
[2021-04-07 13:26] LABS: COLOR Orange (Yellow); RBC 0-2 rbc/hpf (0-2)
[2021-04-07] MEDS ORDERED: SEPTDS PO (15:04)
== END 2021-04-07 14:30 | disposition home or self-care (01) ==
LOC: ED 11:40
PROVIDERS: Physician Assistant
DX: N39.0 Urinary tract infection, site not specified (principal); R07.89 Other chest pain

== ENCOUNTER 2021-08-24 00:50 | Emergency (ER) | payer OTHER ==
[~2021-08-24 00:50] MED LIST changes: +SEPTDS PO
[2021-08-24 02:25] LABS: HEMATOCRIT 42.3 % (42.0-52.0); MEAN CELL VOLUME 86.5 fl (80.0-94.0); MEAN CORPUSCULAR HGB 30.5 pg (27.0-31.0); MEAN CORPUSCULAR HGB CONC 35.2 g/dl (33.0-37.0); MEAN PLATELET VOLUME 9.4 fl (9.6-12.3); PLATELET COUNT AUTOMATED 306 10*3/uL (130-400); RED BLOOD COUNT 4.89 10*6/uL (4.50-5.90); RED CELL DISTRI WIDTH 13.8 % (0-14.5); WHITE BLOOD COUNT 12.7 10*3/uL (4.8-10.8)
[2021-08-24 02:31] LABS: MANUAL DIFF REFLEX YES
[2021-08-24 02:48] LABS: ALKALINE PHOSPHATASE 103 U/L (45-117); BUN 6 mg/dl (7-24); CHLORIDE 107 mmol/L (98-107); CPK 76 U/L (39-308); CREATININE 0.71 mg/dL (0.70-1.30); POTASSIUM 3.1 mmol/L (3.5-5.1); SGOT/AST 20 IU/L (3-35); SGPT/ALT 33 U/L (12-78); SODIUM 139 mmol/L (136-145); TOTAL PROTEIN 7.3 gm/dL (6.4-8.2)
[2021-08-24 02:51] LABS: ACETAMINOPHEN (TYLENOL) < 5.0 ug/ml (10-30)
[2021-08-24 02:56] LABS: PLATELET SUFFICIENCY NORMAL (NORMAL); TOTAL CELLS COUNTED 100 #CELLS
[2021-08-24 09:00] LABS: BILIRUBIN Negative (Negative); BLOOD Negative (Negative); CLARITY Clear (Clear); COLOR Dark Yellow (Yellow); GLUCOSE Trace (Negative); KETONE Trace (Negative); LEUKO ESTERASE Negative (Negative); NITRITE Negative (Negative); SPECIFIC GRAVITY 1.025 (1.001-1.030)
[2021-08-24 09:09] LABS: URINE AMPHETAMINES < 1000 (1000ng/ml); URINE BARBITURATES < 200 (200ng/ml); URINE BENZODIAZEPINES < 200 (200ng/ml); URINE CANNABINOIDS (THC) < 50 (50ng/ml); URINE COCAINE < 300 (300ng/ml); URINE METHADONE < 300 (300ng/ml); URINE OPIATES < 300 (300ng/ml)
[2021-08-24 09:19] LABS: URINE PHENCYCLIDINE < 25 (25ng/ml)
[2021-08-24 09:24] LABS: BACTERIA TRACE; EPITHELIAL CELLS 0-2; MUCOUS 1+
== END 2021-08-25 08:16 ==
LOC: ED 00:50
PROVIDERS: Emergency Medicine
DX: F29 Unspecified psychosis not due to a substance or known physiological condition (principal); Z20.822 Contact with and (suspected) exposure to COVID-19

== ENCOUNTER 2022-09-13 18:00 | Emergency (ER) | payer OTHER ==
[~2022-09-13] VITALS: Ht 180.3 cm; Wt 117.9 kg
[2022-09-13 19:08] LABS: BASO # 0.1 10*3/uL (0.0-0.1); BASO % 0.7 % (0.0-1.0); EOS # 0.3 10*3/uL (0.0-0.4); EOS % 2.6 % (1.0-4.0); HEMATOCRIT 41.4 % (42.0-52.0); LYMPH # 2.6 10*3/uL (1.3-4.4); LYMPH % 26.8 % (27.0-41.0); MEAN CELL VOLUME 85.2 fl (80.0-94.0); MEAN CORPUSCULAR HGB CONC 35.3 g/dl (33.0-37.0); MEAN PLATELET VOLUME 9.6 fl (9.6-12.3); MONO # 0.8 10*3/uL (0.1-1.0); MONO % 7.7 % (3.0-9.0); NEUT % 61.4 % (47.0-73.0); PLATELET COUNT AUTOMATED 280 10*3/uL (130-400); RED BLOOD COUNT 4.86 10*6/uL (4.50-5.90); RED CELL DISTRI WIDTH 12.9 % (0-14.5); WHITE BLOOD COUNT 9.7 10*3/uL (4.8-10.8)
[2022-09-13 19:27] LABS: ALKALINE PHOSPHATASE 80 U/L (46-116); BUN 8 mg/dl (9-23); CHLORIDE 105 mmol/L (98-107); CPK 162 U/L (34-171); POTASSIUM 3.6 mmol/L (3.4-5.1); SGPT/ALT 29 U/L (10-49); TOTAL PROTEIN 7.3 gm/dL (6.0-8.0)
[2022-09-13 19:32] LABS: ETHYL ALCOHOL < 3.0 mg/dl (<3)
[2022-09-13 20:41] LABS: BILIRUBIN Negative (Negative); BLOOD Negative (Negative); CLARITY Clear (Clear); COLOR Yellow (Yellow); GLUCOSE 3+ (Negative); KETONE Trace (Negative); LEUKO ESTERASE Negative (Negative); NITRITE Negative (Negative); SPECIFIC GRAVITY >= 1.030 (1.001-1.030)
[2022-09-13 20:48] LABS: URINE AMPHETAMINES Positive (1000ng/ml); URINE BARBITURATES Negative (200ng/ml); URINE BENZODIAZEPINES Negative (200ng/ml); URINE CANNABINOIDS (THC) Negative (50ng/ml); URINE COCAINE Negative (300ng/ml); URINE METHADONE Negative (300ng/ml); URINE OPIATES Negative (300ng/ml); URINE PHENCYCLIDINE Negative (25ng/ml)
[2022-09-13 20:55] LABS: RBC 0-2 rbc/hpf (0-2)
[2022-09-13 20:56] LABS: BACTERIA TRACE
== END 2022-09-13 21:56 | disposition home or self-care (01) ==
LOC: ED 18:00
PROVIDERS: Nurse Practitioner Family
DX: F15.10 Other stimulant abuse, uncomplicated (principal); R73.9 Hyperglycemia, unspecified; Z90.89 Acquired absence of other organs; Z98.890 Other specified postprocedural states; F12.90 Cannabis use, unspecified, uncomplicated; Z20.822 Contact with and (suspected) exposure to COVID-19; Z79.899 Other long term (current) drug therapy

== ENCOUNTER 2022-09-14 22:31 | Emergency (ER) | payer OTHER ==
[~2022-09-14] VITALS: Ht 180.3 cm; Wt 104.3 kg
[2022-09-14 23:20] LABS: BASO # 0.1 10*3/uL (0.0-0.1); BASO % 0.9 % (0.0-1.0); EOS # 0.4 10*3/uL (0.0-0.4); EOS % 4.6 % (1.0-4.0); HEMATOCRIT 41.5 % (42.0-52.0); LYMPH # 2.4 10*3/uL (1.3-4.4); LYMPH % 27.9 % (27.0-41.0); MEAN CELL VOLUME 88.1 fl (80.0-94.0); MEAN CORPUSCULAR HGB 29.3 pg (27.0-31.0); MEAN CORPUSCULAR HGB CONC 33.3 g/dl (33.0-37.0); MEAN PLATELET VOLUME 9.7 fl (9.6-12.3); MONO # 0.8 10*3/uL (0.1-1.0); MONO % 8.8 % (3.0-9.0); NEUT # 4.9 10*3/uL (2.3-7.9); NEUT % 56.5 % (47.0-73.0); PLATELET COUNT AUTOMATED 263 10*3/uL (130-400); RED BLOOD COUNT 4.71 10*6/uL (4.50-5.90); RED CELL DISTRI WIDTH 13.3 % (0-14.5); WHITE BLOOD COUNT 8.7 10*3/uL (4.8-10.8)
[2022-09-14 23:43] LABS: BILIRUBIN Negative (Negative); BLOOD Negative (Negative); CLARITY Clear (Clear); COLOR Yellow (Yellow); GLUCOSE 2+ (Negative); KETONE Trace (Negative); LEUKO ESTERASE Negative (Negative); NITRITE Negative (Negative); SPECIFIC GRAVITY >= 1.030 (1.001-1.030)
[2022-09-14 23:50] LABS: ALKALINE PHOSPHATASE 79 U/L (46-116); BUN 9 mg/dl (9-23); CHLORIDE 107 mmol/L (98-107); POTASSIUM 3.6 mmol/L (3.4-5.1); SGPT/ALT 26 U/L (10-49); THYROID STIM HORMONE (HS) 1.734 uIU/ml (0.550-4.780)
[2022-09-14 23:50] LABS: URINE AMPHETAMINES Positive (1000ng/ml); URINE BARBITURATES Negative (200ng/ml); URINE BENZODIAZEPINES Negative (200ng/ml); URINE CANNABINOIDS (THC) Negative (50ng/ml); URINE COCAINE Negative (300ng/ml); URINE METHADONE Negative (300ng/ml); URINE OPIATES Negative (300ng/ml); URINE PHENCYCLIDINE Negative (25ng/ml)
[2022-09-14 23:53] LABS: RBC 0-2 rbc/hpf (0-2); WBC 0-2 wbc/hpf (0-5)
[2022-09-14 23:54] LABS: BACTERIA TRACE
[2022-09-14 23:54] LABS: ETHYL ALCOHOL < 3.0 mg/dl (<3)
== END 2022-09-15 08:45 | disposition short-term general hospital (02) ==
LOC: ED 22:31
PROVIDERS: Emergency Medicine
DX: F29 Unspecified psychosis not due to a substance or known physiological condition (principal); F15.10 Other stimulant abuse, uncomplicated; Z90.89 Acquired absence of other organs; Z98.890 Other specified postprocedural states; F10.10 Alcohol abuse, uncomplicated; F12.90 Cannabis use, unspecified, uncomplicated; Z79.899 Other long term (current) drug therapy

== ENCOUNTER 2022-09-25 16:24 | Emergency (ER) | payer OTHER ==
[~2022-09-25] VITALS: Ht 180.3 cm; Wt 108.9 kg
== END 2022-09-25 16:46 | disposition home or self-care (01) ==
LOC: ED 16:24
DX: F41.9 Anxiety disorder, unspecified (principal); F32.A Depression, unspecified; Z53.21 Procedure and treatment not carried out due to patient leaving prior to being seen by health care provider; Z90.89 Acquired absence of other organs; Z96.22 Myringotomy tube(s) status

== ENCOUNTER 2023-03-07 03:31 | Emergency (ER) | payer OTHER ==
[~2023-03-07] VITALS: Ht 180.3 cm; Wt 90.7 kg
[2023-03-07 04:02] LABS: HEMATOCRIT 46.8 % (42.0-52.0); MEAN CELL VOLUME 84.9 fl (80.0-94.0); MEAN CORPUSCULAR HGB 29.9 pg (27.0-31.0); MEAN CORPUSCULAR HGB CONC 35.3 g/dl (33.0-37.0); MEAN PLATELET VOLUME 9.4 fl (9.6-12.3); PLATELET COUNT AUTOMATED 419 10*3/uL (130-400); RED BLOOD COUNT 5.51 10*6/uL (4.50-5.90); RED CELL DISTRI WIDTH 13.4 % (0-14.5); WHITE BLOOD COUNT 19.1 10*3/uL (4.8-10.8)
[2023-03-07 04:09] LABS: MANUAL DIFF REFLEX YES
[2023-03-07 04:19] LABS: ACT PARTIAL THROMBO TIME 27.1 SECONDS (20.0-32.1)
[2023-03-07 04:29] LABS: BASOPHILS 1 % (0-1); PLATELET SUFFICIENCY HIGH (NORMAL); TOTAL CELLS COUNTED 100 #CELLS
[2023-03-07 04:33] LABS: ALKALINE PHOSPHATASE 110 U/L (46-116); BUN 13 mg/dl (9-23); CHLORIDE 103 mmol/L (98-107); CPK 316 U/L (34-171); ETHYL ALCOHOL < 3.0 mg/dl (<3); LIPASE 29 U/L (12-53); SGPT/ALT 33 U/L (5-49); TOTAL PROTEIN 8.7 gm/dL (6.0-8.0)
[2023-03-07 04:55] LABS: BILIRUBIN 2+ (Negative); BLOOD Negative (Negative); CLARITY Cloudy (Clear); COLOR Orange (Yellow); GLUCOSE 3+ (Negative); KETONE Trace (Negative); LEUKO ESTERASE Trace (Negative); NITRITE Negative (Negative); SPECIFIC GRAVITY >= 1.030 (1.001-1.030)
[2023-03-07 05:02] LABS: URINE AMPHETAMINES Positive (1000ng/ml); URINE BARBITURATES Negative (200ng/ml); URINE BENZODIAZEPINES Negative (200ng/ml); URINE CANNABINOIDS (THC) Negative (50ng/ml); URINE COCAINE Positive (300ng/ml); URINE METHADONE Negative (300ng/ml); URINE OPIATES Negative (300ng/ml); URINE PHENCYCLIDINE Negative (25ng/ml)
[2023-03-07 05:06] LABS: BACTERIA 1+; MUCOUS 1+
== END 2023-03-07 09:14 | disposition home or self-care (01) ==
LOC: ED 03:31
PROVIDERS: Internal Medicine
DX: F32.A Depression, unspecified (principal); F19.94 Other psychoactive substance use, unspecified with psychoactive substance-induced mood disorder; Z90.89 Acquired absence of other organs; Z98.890 Other specified postprocedural states; F12.90 Cannabis use, unspecified, uncomplicated; F17.290 Nicotine dependence, other tobacco product, uncomplicated; Z79.899 Other long term (current) drug therapy; R10.2 Pelvic and perineal pain

== ENCOUNTER 2023-03-08 06:29 | Emergency (ER) | payer OTHER ==
[~2023-03-08] VITALS: Ht 175.2 cm; Wt 95.3 kg
[2023-03-08 06:47] LABS: BASO # 0.1 10*3/uL (0.0-0.1); BASO % 0.7 % (0.0-1.0); EOS # 0.3 10*3/uL (0.0-0.4); EOS % 2.2 % (1.0-4.0); HEMATOCRIT 42.7 % (42.0-52.0); LYMPH # 2.9 10*3/uL (1.3-4.4); LYMPH % 20.6 % (27.0-41.0); MEAN CELL VOLUME 86.3 fl (80.0-94.0); MEAN CORPUSCULAR HGB 29.9 pg (27.0-31.0); MEAN CORPUSCULAR HGB CONC 34.7 g/dl (33.0-37.0); MEAN PLATELET VOLUME 9.4 fl (9.6-12.3); MONO # 1.3 10*3/uL (0.1-1.0); MONO % 9.2 % (3.0-9.0); NEUT # 9.4 10*3/uL (2.3-7.9); NEUT % 66.7 % (47.0-73.0); PLATELET COUNT AUTOMATED 305 10*3/uL (130-400); RED BLOOD COUNT 4.95 10*6/uL (4.50-5.90); RED CELL DISTRI WIDTH 13.4 % (0-14.5); WHITE BLOOD COUNT 14.2 10*3/uL (4.8-10.8)
[2023-03-08 07:07] LABS: ALKALINE PHOSPHATASE 100 U/L (46-116); BUN 14 mg/dl (9-23); CHLORIDE 104 mmol/L (98-107); LIPASE 25 U/L (12-53); POTASSIUM 3.8 mmol/L (3.4-5.1); SGPT/ALT 29 U/L (5-49); TOTAL PROTEIN 7.9 gm/dL (6.0-8.0)
[2023-03-08 07:08] LABS: CPK 721 U/L (34-171); ETHYL ALCOHOL < 3.0 mg/dl (<3)
[2023-03-08 07:19] LABS: ACT PARTIAL THROMBO TIME 27.1 SECONDS (20.0-32.1)
[2023-03-08 08:42] LABS: BILIRUBIN Negative (Negative); BLOOD Negative (Negative); CLARITY Clear (Clear); COLOR Dark Yellow (Yellow); GLUCOSE 2+ (Negative); KETONE 1+ (Negative); LEUKO ESTERASE Negative (Negative); NITRITE Negative (Negative); SPECIFIC GRAVITY >= 1.030 (1.001-1.030)
[2023-03-08 08:49] LABS: URINE AMPHETAMINES Positive (1000ng/ml); URINE BARBITURATES Negative (200ng/ml); URINE BENZODIAZEPINES Negative (200ng/ml); URINE CANNABINOIDS (THC) Negative (50ng/ml); URINE COCAINE Negative (300ng/ml); URINE METHADONE Negative (300ng/ml); URINE OPIATES Negative (300ng/ml); URINE PHENCYCLIDINE Negative (25ng/ml)
[2023-03-08 09:02] LABS: BACTERIA TRACE; MUCOUS 2+
== END 2023-03-08 11:00 | disposition short-term general hospital (02) ==
LOC: ED 06:29
PROVIDERS: Internal Medicine
DX: F31.9 Bipolar disorder, unspecified (principal); R10.2 Pelvic and perineal pain; Z90.89 Acquired absence of other organs; Z98.890 Other specified postprocedural states; F10.10 Alcohol abuse, uncomplicated; F12.90 Cannabis use, unspecified, uncomplicated; F17.290 Nicotine dependence, other tobacco product, uncomplicated; Z79.899 Other long term (current) drug therapy

== ENCOUNTER 2023-03-13 14:48 | Emergency (ER) | payer OTHER ==
[~2023-03-13] VITALS: Ht 180.3 cm; Wt 109.8 kg
[2023-03-13 15:18] LABS: BASO # 0.1 10*3/uL (0.0-0.1); BASO % 0.7 % (0.0-1.0); EOS # 0.3 10*3/uL (0.0-0.4); EOS % 3.6 % (1.0-4.0); HEMATOCRIT 42.2 % (42.0-52.0); LYMPH # 2.1 10*3/uL (1.3-4.4); MEAN CELL VOLUME 85.6 fl (80.0-94.0); MEAN CORPUSCULAR HGB 30.2 pg (27.0-31.0); MEAN CORPUSCULAR HGB CONC 35.3 g/dl (33.0-37.0); MEAN PLATELET VOLUME 9.4 fl (9.6-12.3); MONO # 0.7 10*3/uL (0.1-1.0); NEUT # 6.1 10*3/uL (2.3-7.9); PLATELET COUNT AUTOMATED 299 10*3/uL (130-400); RED BLOOD COUNT 4.93 10*6/uL (4.50-5.90); RED CELL DISTRI WIDTH 13.3 % (0-14.5); WHITE BLOOD COUNT 9.4 10*3/uL (4.8-10.8)
[2023-03-13 15:41] LABS: ALKALINE PHOSPHATASE 81 U/L (46-116); BUN 9 mg/dl (9-23); CHLORIDE 105 mmol/L (98-107); POTASSIUM 3.9 mmol/L (3.4-5.1); SGPT/ALT 28 U/L (5-49); TOTAL PROTEIN 7.3 gm/dL (6.0-8.0)
[2023-03-13 15:45] LABS: ETHYL ALCOHOL < 3.0 mg/dl (<3)
[2023-03-13 17:41] LABS: BILIRUBIN Negative (Negative); BLOOD Negative (Negative); CLARITY Clear (Clear); COLOR Yellow (Yellow); GLUCOSE Trace (Negative); KETONE Negative (Negative); LEUKO ESTERASE Negative (Negative); NITRITE Negative (Negative); SPECIFIC GRAVITY 1.025 (1.001-1.030); UROBILINOGEN 0.2 E.U./dl (0.0-1.0)
[2023-03-13 17:48] LABS: URINE AMPHETAMINES Negative (1000ng/ml); URINE BARBITURATES Negative (200ng/ml); URINE BENZODIAZEPINES Negative (200ng/ml); URINE CANNABINOIDS (THC) Negative (50ng/ml); URINE COCAINE Negative (300ng/ml); URINE METHADONE Negative (300ng/ml); URINE OPIATES Negative (300ng/ml); URINE PHENCYCLIDINE Negative (25ng/ml)
[2023-03-13 18:05] LABS: MUCOUS 2+
== END 2023-03-14 09:40 ==
LOC: ED 14:48
PROVIDERS: Family Medicine
DX: F43.21 Adjustment disorder with depressed mood (principal); Z90.89 Acquired absence of other organs; Z98.890 Other specified postprocedural states; Z79.899 Other long term (current) drug therapy; F10.10 Alcohol abuse, uncomplicated; F12.90 Cannabis use, unspecified, uncomplicated; F15.90 Other stimulant use, unspecified, uncomplicated

== ENCOUNTER 2023-07-20 10:18 | Emergency (ER) | payer OTHER ==
[~2023-07-20] VITALS: Ht 180.3 cm; Wt 117.9 kg
[2023-07-20] MEDS ORDERED: Ondansetron Hydrochloride 4 MG TAB SL ONE (11:00)
[2023-07-20 11:15] LABS: BASO # 0.1 10*3/uL (0.0-0.1); BASO % 0.4 % (0.0-1.0); EOS # 0.2 10*3/uL (0.0-0.4); EOS % 1.4 % (1.0-4.0); HEMATOCRIT 44.8 % (42.0-52.0); LYMPH # 1.9 10*3/uL (1.3-4.4); LYMPH % 11.6 % (27.0-41.0); MEAN CELL VOLUME 90.3 fl (80.0-94.0); MEAN CORPUSCULAR HGB 29.4 pg (27.0-31.0); MEAN CORPUSCULAR HGB CONC 32.6 g/dl (33.0-37.0); MEAN PLATELET VOLUME 9.8 fl (9.6-12.3); MONO # 1.2 10*3/uL (0.1-1.0); MONO % 7.2 % (3.0-9.0); NEUT # 12.6 10*3/uL (2.3-7.9); NEUT % 78.5 % (47.0-73.0); PLATELET COUNT AUTOMATED 307 10*3/uL (130-400); RED BLOOD COUNT 4.96 10*6/uL (4.50-5.90); RED CELL DISTRI WIDTH 13.2 % (0-14.5); WHITE BLOOD COUNT 16.1 10*3/uL (4.8-10.8)
[2023-07-20 11:36] LABS: ALKALINE PHOSPHATASE 99 U/L (46-116); BUN 11 mg/dl (9-23); CHLORIDE 109 mmol/L (98-107); POTASSIUM 4.4 mmol/L (3.4-5.1); SGPT/ALT 15 U/L (5-49); TOTAL PROTEIN 7.9 gm/dL (6.0-8.0)
[2023-07-20 11:41] LABS: ETHYL ALCOHOL < 3.0 mg/dl (<3)
[2023-07-20 12:30] LABS: BILIRUBIN 1+ (Negative); BLOOD Negative (Negative); CLARITY Clear (Clear); COLOR Dark Yellow (Yellow); GLUCOSE Trace (Negative); KETONE Trace (Negative); LEUKO ESTERASE Negative (Negative); NITRITE Negative (Negative); SPECIFIC GRAVITY >= 1.030 (1.001-1.030)
[2023-07-20 12:31] LABS: URINE AMPHETAMINES Negative (1000ng/ml); URINE BARBITURATES Negative (200ng/ml); URINE BENZODIAZEPINES Negative (200ng/ml); URINE CANNABINOIDS (THC) Positive (50ng/ml); URINE COCAINE Negative (300ng/ml); URINE METHADONE Negative (300ng/ml); URINE OPIATES Negative (300ng/ml); URINE PHENCYCLIDINE Negative (25ng/ml)
[2023-07-20 12:50] LABS: CALCIUM OXALATE CRYSTALS 1+
[2023-07-20 12:51] LABS: BACTERIA 3+; HYALINE CAST TNTC; MUCOUS 2+
[2023-07-20] MEDS ORDERED: ONDANSETRON4 MG SL (13:01)
[2023-07-20] MEDS ORDERED: CIPRO500 MG PO (13:01)
== END 2023-07-20 13:10 | disposition home or self-care (01) ==
LOC: ED 10:18
PROVIDERS: Internal Medicine
DX: N39.0 Urinary tract infection, site not specified (principal); R11.2 Nausea with vomiting, unspecified; Z90.89 Acquired absence of other organs; Z98.890 Other specified postprocedural states; F10.10 Alcohol abuse, uncomplicated; F12.90 Cannabis use, unspecified, uncomplicated; F15.90 Other stimulant use, unspecified, uncomplicated; F17.200 Nicotine dependence, unspecified, uncomplicated

== ENCOUNTER 2023-08-01 06:05 | Emergency (ER) | payer OTHER ==
[~2023-08-01] VITALS: Ht 180.3 cm; Wt 103.0 kg
[~2023-08-01 06:05] MED LIST changes: +CIPRO500 MG PO; +ONDANSETRON4 MG SL
== END 2023-08-01 08:30 | disposition home or self-care (01) ==
LOC: ED 06:05
DX: R41.0 Disorientation, unspecified (principal); Z98.890 Other specified postprocedural states; Z90.89 Acquired absence of other organs; F10.10 Alcohol abuse, uncomplicated; F12.90 Cannabis use, unspecified, uncomplicated

== ENCOUNTER 2023-10-08 14:55 | Emergency (ER) | payer OTHER ==
[~2023-10-08 14:55] MED LIST changes: +DEPAKOTE250 MG PO; +INVEGA3 MG PO; +VITAMIN D250 MC1 PO
[2023-10-08 15:17] LABS: BILIRUBIN Negative (Negative); BLOOD Negative (Negative); CLARITY Clear (Clear); COLOR Yellow (Yellow); GLUCOSE 3+ (Negative); KETONE Trace (Negative); LEUKO ESTERASE Negative (Negative); NITRITE Negative (Negative); PH 5.5 (4.5-8.0); SPECIFIC GRAVITY >= 1.030 (1.001-1.030); UROBILINOGEN 0.2 E.U./dl (0.0-1.0)
[2023-10-08 15:24] LABS: HEMATOCRIT 41.7 % (42.0-52.0); MEAN CELL VOLUME 89.9 fl (80.0-94.0); MEAN CORPUSCULAR HGB CONC 33.3 g/dl (33.0-37.0); MEAN PLATELET VOLUME 9.6 fl (9.6-12.3); PLATELET COUNT AUTOMATED 279 10*3/uL (130-400); RED BLOOD COUNT 4.64 10*6/uL (4.50-5.90); RED CELL DISTRI WIDTH 13.5 % (0-14.5); WHITE BLOOD COUNT 11.1 10*3/uL (4.8-10.8)
[2023-10-08 15:25] LABS: MANUAL DIFF REFLEX YES
[2023-10-08 15:29] LABS: RBC 0-2 rbc/hpf (0-2); WBC 0-2 wbc/hpf (0-5)
[2023-10-08 15:32] LABS: URINE AMPHETAMINES Negative (1000ng/ml); URINE BARBITURATES Negative (200ng/ml); URINE BENZODIAZEPINES Negative (200ng/ml); URINE CANNABINOIDS (THC) Negative (50ng/ml); URINE COCAINE Negative (300ng/ml); URINE METHADONE Negative (300ng/ml); URINE OPIATES Negative (300ng/ml); URINE PHENCYCLIDINE Negative (25ng/ml)
[2023-10-08 15:58] LABS: ETHYL ALCOHOL 5.2 mg/dl (<3)
[2023-10-08 15:58] LABS: ALKALINE PHOSPHATASE 92 U/L (46-116); BUN 10 mg/dl (9-23); CHLORIDE 104 mmol/L (98-107); CPK 76 U/L (34-171); POTASSIUM 4.1 mmol/L (3.4-5.1); SGPT/ALT 59 U/L (5-49); TOTAL PROTEIN 7.5 gm/dL (6.0-8.0)
[2023-10-08 16:00] LABS: PLATELET SUFFICIENCY NORMAL (NORMAL); TOTAL CELLS COUNTED 100 #CELLS
[2023-10-08 16:02] LABS: VALPROIC ACID (DEPAKENE) < 3.0 ug/ml (50-100)
[2023-10-08 16:04] LABS: POLYCHROMASIA SLIGHT; ROULEAUX SLIGHT
== END 2023-10-08 21:40 ==
LOC: ED 14:55
PROVIDERS: Internal Medicine
DX: F39 Unspecified mood [affective] disorder (principal); F15.90 Other stimulant use, unspecified, uncomplicated; Z90.89 Acquired absence of other organs; Z98.890 Other specified postprocedural states; Z87.891 Personal history of nicotine dependence

== ENCOUNTER 2023-11-04 11:11 | Emergency (ER) | payer OTHER ==
[~2023-11-04] VITALS: Ht 180.3 cm; Wt 112.5 kg
[2023-11-04 11:51] LABS: BILIRUBIN 1+ (Negative); BLOOD Negative (Negative); CLARITY Clear (Clear); COLOR Dark Yellow (Yellow); GLUCOSE Trace (Negative); KETONE Trace (Negative); LEUKO ESTERASE Trace (Negative); NITRITE Negative (Negative); PH 5.5 (4.5-8.0); SPECIFIC GRAVITY >= 1.030 (1.001-1.030)
[2023-11-04 11:55] LABS: BASO # 0.1 10*3/uL (0.0-0.1); BASO % 0.9 % (0.0-1.0); EOS # 0.3 10*3/uL (0.0-0.4); EOS % 3.2 % (1.0-4.0); HEMATOCRIT 40.5 % (42.0-52.0); LYMPH # 2.5 10*3/uL (1.3-4.4); LYMPH % 24.6 % (27.0-41.0); MEAN CELL VOLUME 88.2 fl (80.0-94.0); MEAN CORPUSCULAR HGB 29.8 pg (27.0-31.0); MEAN CORPUSCULAR HGB CONC 33.8 g/dl (33.0-37.0); MEAN PLATELET VOLUME 9.5 fl (9.6-12.3); MONO # 0.9 10*3/uL (0.1-1.0); MONO % 8.5 % (3.0-9.0); NEUT # 6.1 10*3/uL (2.3-7.9); NEUT % 60.9 % (47.0-73.0); PLATELET COUNT AUTOMATED 225 10*3/uL (130-400); RED BLOOD COUNT 4.59 10*6/uL (4.50-5.90); RED CELL DISTRI WIDTH 13.3 % (0-14.5)
[2023-11-04 11:59] LABS: URINE AMPHETAMINES Negative (1000ng/ml); URINE BARBITURATES Negative (200ng/ml); URINE BENZODIAZEPINES Negative (200ng/ml); URINE CANNABINOIDS (THC) Positive (50ng/ml); URINE COCAINE Negative (300ng/ml); URINE METHADONE Negative (300ng/ml); URINE OPIATES Negative (300ng/ml); URINE PHENCYCLIDINE Negative (25ng/ml)
[2023-11-04 12:06] LABS: ACT PARTIAL THROMBO TIME 25.3 SECONDS (20.0-32.1)
[2023-11-04 12:22] LABS: ALKALINE PHOSPHATASE 85 U/L (46-116); BUN 15 mg/dl (9-23); CHLORIDE 106 mmol/L (98-107); LIPASE 31 U/L (12-53); POTASSIUM 3.9 mmol/L (3.4-5.1); SGPT/ALT 29 U/L (5-49); TOTAL PROTEIN 7.5 gm/dL (6.0-8.0)
[2023-11-04 12:29] LABS: BACTERIA 2+; MUCOUS 2+
== END 2023-11-04 19:11 ==
LOC: ED 11:11
PROVIDERS: Internal Medicine
DX: F29 Unspecified psychosis not due to a substance or known physiological condition (principal); F15.10 Other stimulant abuse, uncomplicated; Z98.890 Other specified postprocedural states; Z90.89 Acquired absence of other organs

== ENCOUNTER 2023-11-22 16:25 | Emergency (ER) | payer OTHER ==
[~2023-11-22] VITALS: Ht 15575 cm; Wt 113.4 kg
[2023-11-22 16:43] LABS: BASO # 0.1 10*3/uL (0.0-0.1); BASO % 0.6 % (0.0-1.0); EOS # 0.4 10*3/uL (0.0-0.4); EOS % 3.7 % (1.0-4.0); HEMATOCRIT 38.4 % (42.0-52.0); LYMPH # 2.3 10*3/uL (1.3-4.4); LYMPH % 23.7 % (27.0-41.0); MEAN CELL VOLUME 86.7 fl (80.0-94.0); MEAN CORPUSCULAR HGB CONC 34.6 g/dl (33.0-37.0); MEAN PLATELET VOLUME 9.3 fl (9.6-12.3); MONO # 0.9 10*3/uL (0.1-1.0); MONO % 9.1 % (3.0-9.0); NEUT # 5.9 10*3/uL (2.3-7.9); NEUT % 61.6 % (47.0-73.0); PLATELET COUNT AUTOMATED 229 10*3/uL (130-400); RED BLOOD COUNT 4.43 10*6/uL (4.50-5.90); WHITE BLOOD COUNT 9.6 10*3/uL (4.8-10.8)
[2023-11-22 16:55] LABS: ACT PARTIAL THROMBO TIME 25.1 SECONDS (20.0-32.1)
[2023-11-22 17:09] LABS: BILIRUBIN Negative (Negative); BLOOD Negative (Negative); CLARITY Clear (Clear); COLOR Yellow (Yellow); GLUCOSE Negative (Negative); KETONE Negative (Negative); LEUKO ESTERASE Negative (Negative); NITRITE Negative (Negative)
[2023-11-22] MEDS ORDERED: hydrOXYzine pamoate 25 MG CAP PO ONE (17:10)
[2023-11-22 17:16] LABS: URINE AMPHETAMINES Negative (1000ng/ml); URINE BARBITURATES Negative (200ng/ml); URINE BENZODIAZEPINES Negative (200ng/ml); URINE CANNABINOIDS (THC) Negative (50ng/ml); URINE COCAINE Negative (300ng/ml); URINE METHADONE Negative (300ng/ml); URINE OPIATES Negative (300ng/ml); URINE PHENCYCLIDINE Negative (25ng/ml)
[2023-11-22 17:23] LABS: ALKALINE PHOSPHATASE 78 U/L (46-116); BUN 11 mg/dl (9-23); CHLORIDE 104 mmol/L (98-107); CPK 109 U/L (34-171); LIPASE 26 U/L (12-53); POTASSIUM 3.6 mmol/L (3.4-5.1); SGPT/ALT 17 U/L (5-49); TOTAL PROTEIN 7.1 gm/dL (6.0-8.0)
[2023-11-22 17:24] LABS: ETHYL ALCOHOL < 3.0 mg/dl (<3)
[2023-11-22 17:26] LABS: EPITHELIAL CELLS 0-2
== END 2023-11-22 18:17 | disposition home or self-care (01) ==
LOC: ED 16:25
PROVIDERS: Internal Medicine
DX: F41.9 Anxiety disorder, unspecified (principal); F15.10 Other stimulant abuse, uncomplicated; F14.10 Cocaine abuse, uncomplicated; Z90.89 Acquired absence of other organs; Z98.890 Other specified postprocedural states

== ENCOUNTER 2024-03-17 18:41 | Emergency (ER) | payer OTHER ==
[~2024-03-17] VITALS: Ht 180.3 cm; Wt 117.9 kg
[2024-03-17 19:31] LABS: BASO # 0.1 10*3/uL (0.0-0.1); BASO % 0.7 % (0.0-1.0); EOS # 0.2 10*3/uL (0.0-0.4); EOS % 1.1 % (1.0-4.0); HEMATOCRIT 45.4 % (42.0-52.0); MEAN CORPUSCULAR HGB 29.3 pg (27.0-31.0); MEAN CORPUSCULAR HGB CONC 33.7 g/dl (33.0-37.0); MEAN PLATELET VOLUME 9.3 fl (9.6-12.3); MONO # 1.1 10*3/uL (0.1-1.0); MONO % 7.2 % (3.0-9.0); NEUT # 11.9 10*3/uL (2.3-7.9); NEUT % 78.4 % (47.0-73.0); PLATELET COUNT AUTOMATED 288 10*3/uL (130-400); RED BLOOD COUNT 5.22 10*6/uL (4.50-5.90); WHITE BLOOD COUNT 15.2 10*3/uL (4.8-10.8)
[2024-03-17 20:12] LABS: ALKALINE PHOSPHATASE 109 U/L (46-116); BUN 14 mg/dl (9-23); CHLORIDE 100 mmol/L (98-107); CPK 222 U/L (34-171); POTASSIUM 3.9 mmol/L (3.4-5.1); SGPT/ALT 24 U/L (5-49); TOTAL PROTEIN 8.3 gm/dL (6.0-8.0)
[2024-03-17 20:14] LABS: ETHYL ALCOHOL < 3.0 mg/dl (<3)
[2024-03-17] MEDS ORDERED: SODIUM CHLORIDE 0.9% 1,000 ML IV ONE (20:30)
== END 2024-03-17 21:26 | disposition left against medical advice (07) ==
LOC: ED 18:41
PROVIDERS: Internal Medicine
DX: F22 Delusional disorders (principal); Z53.29 Procedure and treatment not carried out because of patient's decision for other reasons; F15.10 Other stimulant abuse, uncomplicated; F41.9 Anxiety disorder, unspecified; Z87.891 Personal history of nicotine dependence; Z90.89 Acquired absence of other organs; Z98.890 Other specified postprocedural states

== ENCOUNTER 2024-03-17 22:10 | Emergency (ER) | payer OTHER ==
[~2024-03-17] VITALS: Ht 182.8 cm; Wt 113.4 kg
[2024-03-17 22:49] LABS: BASO # 0.1 10*3/uL (0.0-0.1); BASO % 0.7 % (0.0-1.0); EOS # 0.1 10*3/uL (0.0-0.4); EOS % 0.4 % (1.0-4.0); HEMATOCRIT 45.4 % (42.0-52.0); MEAN CORPUSCULAR HGB 29.2 pg (27.0-31.0); MEAN CORPUSCULAR HGB CONC 33.9 g/dl (33.0-37.0); MEAN PLATELET VOLUME 9.5 fl (9.6-12.3); MONO % 7.4 % (3.0-9.0); NEUT # 9.8 10*3/uL (2.3-7.9); NEUT % 72.4 % (47.0-73.0); PLATELET COUNT AUTOMATED 311 10*3/uL (130-400); RED BLOOD COUNT 5.28 10*6/uL (4.50-5.90); RED CELL DISTRI WIDTH 13.1 % (0-14.5); WHITE BLOOD COUNT 13.6 10*3/uL (4.8-10.8)
[2024-03-17 23:16] LABS: ALKALINE PHOSPHATASE 111 U/L (46-116); BUN 15 mg/dl (9-23); CHLORIDE 100 mmol/L (98-107); CPK 269 U/L (34-171); SGPT/ALT 27 U/L (5-49); TOTAL PROTEIN 8.2 gm/dL (6.0-8.0)
[2024-03-17 23:21] LABS: ETHYL ALCOHOL < 3.0 mg/dl (<3)
[2024-03-17] MEDS ORDERED: SODIUM CHLORIDE 0.9% 1,000 ML IV ONE (23:45)
[2024-03-18 09:21] LABS: BILIRUBIN Negative (Negative); BLOOD Negative (Negative); CLARITY Clear (Clear); GLUCOSE 3+ (Negative); KETONE Trace (Negative); LEUKO ESTERASE Negative (Negative); NITRITE Negative (Negative); PH 5.5 (4.5-8.0); SPECIFIC GRAVITY >= 1.030 (1.001-1.030)
[2024-03-18 09:28] LABS: URINE AMPHETAMINES Positive (1000ng/ml); URINE BARBITURATES Negative (200ng/ml); URINE BENZODIAZEPINES Negative (200ng/ml); URINE CANNABINOIDS (THC) Positive (50ng/ml); URINE COCAINE Negative (300ng/ml); URINE METHADONE Negative (300ng/ml); URINE OPIATES Negative (300ng/ml); URINE PHENCYCLIDINE Negative (25ng/ml)
[2024-03-18 09:59] LABS: COLOR Yellow (Yellow)
[2024-03-18 10:01] LABS: BACTERIA 2+; RBC 0-2 rbc/hpf (0-2)
[2024-03-18 10:02] LABS: EPITHELIAL CELLS 0-2; WBC 0-2 wbc/hpf (0-5)
[2024-03-18] MEDS ORDERED: INSULIN REGULAR, HUMAN 1 UNIT/0.01 ML IV ONE (15:50)
[2024-03-18] MEDS ORDERED: SODIUM CHLORIDE 0.9% 500 ML IV ONE (15:50)
[2024-03-18] MEDS ORDERED: INSULIN REGULAR, HUMAN 1 UNIT/0.01 ML SC ONE (15:55)
[2024-03-18] MEDS ORDERED: Ondansetron Hydrochloride 4 MG TAB SL ONE (19:55)
[2024-03-18] MEDS ORDERED: IBUPROFEN 800 MG TAB PO ONE (20:15)
== END 2024-03-18 20:11 ==
LOC: ED 22:10
PROVIDERS: Internal Medicine
DX: F29 Unspecified psychosis not due to a substance or known physiological condition (principal); F41.9 Anxiety disorder, unspecified; F15.10 Other stimulant abuse, uncomplicated; Z90.89 Acquired absence of other organs; Z98.890 Other specified postprocedural states; Z87.891 Personal history of nicotine dependence; Z79.899 Other long term (current) drug therapy

== ENCOUNTER 2024-05-09 23:58 | Emergency (ER) | payer OTHER ==
[~2024-05-09] VITALS: Ht 180.3 cm; Wt 117.9 kg
[2024-05-10] MEDS ORDERED: Ondansetron Hydrochloride 4 MG/2 ML VIAL IV ONE (00:15)
[2024-05-10] MEDS ORDERED: SODIUM CHLORIDE 0.9% 1,000 ML IV ONE ×3 (00:15→01:20)
[2024-05-10 00:31] LABS: HEMATOCRIT 44.6 % (42.0-52.0); MEAN CELL VOLUME 86.8 fl (80.0-94.0); MEAN CORPUSCULAR HGB 28.8 pg (27.0-31.0); MEAN CORPUSCULAR HGB CONC 33.2 g/dl (33.0-37.0); MEAN PLATELET VOLUME 9.8 fl (9.6-12.3); PLATELET COUNT AUTOMATED 247 10*3/uL (130-400); RED BLOOD COUNT 5.14 10*6/uL (4.50-5.90); RED CELL DISTRI WIDTH 13.2 % (0-14.5)
[2024-05-10 00:36] LABS: MANUAL DIFF REFLEX YES
[2024-05-10 00:57] LABS: ALKALINE PHOSPHATASE 85 U/L (46-116); BUN 16 mg/dl (9-23); CHLORIDE 99 mmol/L (98-107); LIPASE 21 U/L (12-53); POTASSIUM 3.8 mmol/L (3.4-5.1); SGPT/ALT 29 U/L (5-49)
[2024-05-10 01:11] LABS: PLATELET SUFFICIENCY NORMAL (NORMAL); TOTAL CELLS COUNTED 100 #CELLS
[2024-05-10] MEDS ORDERED: INSULIN REGULAR, HUMAN 1 UNIT/0.01 ML IV ONE (01:20)
[2024-05-10 05:07] LABS: BUN 7 mg/dl (9-23); CHLORIDE 106 mmol/L (98-107); POTASSIUM 3.5 mmol/L (3.4-5.1)
[2024-05-10] MEDS ORDERED: Ondansetron4 MG PO (05:39)
== END 2024-05-10 06:00 | disposition home or self-care (01) ==
LOC: ED 23:58
PROVIDERS: Internal Medicine
DX: K52.9 Noninfective gastroenteritis and colitis, unspecified (principal); D72.829 Elevated white blood cell count, unspecified; E11.65 Type 2 diabetes mellitus with hyperglycemia; F41.9 Anxiety disorder, unspecified; F15.90 Other stimulant use, unspecified, uncomplicated; Z90.89 Acquired absence of other organs; Z98.890 Other specified postprocedural states; Z87.891 Personal history of nicotine dependence

== ENCOUNTER 2024-05-11 17:18 | Emergency (ER) | payer OTHER ==
[~2024-05-11] VITALS: Ht 182.8 cm; Wt 122.5 kg
[~2024-05-11 17:18] MED LIST changes: +Ondansetron4 MG PO
[2024-05-11 17:47] LABS: BASO # 0.1 10*3/uL (0.0-0.1); BASO % 0.6 % (0.0-1.0); EOS # 0.1 10*3/uL (0.0-0.4); EOS % 0.9 % (1.0-4.0); HEMATOCRIT 41.3 % (42.0-52.0); MEAN CELL VOLUME 87.1 fl (80.0-94.0); MEAN CORPUSCULAR HGB 28.9 pg (27.0-31.0); MEAN CORPUSCULAR HGB CONC 33.2 g/dl (33.0-37.0); MEAN PLATELET VOLUME 9.8 fl (9.6-12.3); MONO % 8.7 % (3.0-9.0); NEUT # 8.6 10*3/uL (2.3-7.9); NEUT % 73.9 % (47.0-73.0); PLATELET COUNT AUTOMATED 226 10*3/uL (130-400); RED BLOOD COUNT 4.74 10*6/uL (4.50-5.90); WHITE BLOOD COUNT 11.7 10*3/uL (4.8-10.8)
[2024-05-11 18:08] LABS: ALKALINE PHOSPHATASE 84 U/L (46-116); BUN 8 mg/dl (9-23); CHLORIDE 102 mmol/L (98-107); CPK 1162 U/L (34-171); POTASSIUM 3.4 mmol/L (3.4-5.1); SGPT/ALT 36 U/L (5-49); TOTAL PROTEIN 7.6 gm/dL (6.0-8.0)
[2024-05-11 18:15] LABS: ETHYL ALCOHOL < 3.0 mg/dl (<3)
== END 2024-05-11 20:00 | disposition left against medical advice (07) ==
LOC: ED 17:18
PROVIDERS: Internal Medicine
DX: F15.10 Other stimulant abuse, uncomplicated (principal); Z79.899 Other long term (current) drug therapy; Z90.89 Acquired absence of other organs; Z98.890 Other specified postprocedural states

== ENCOUNTER 2024-05-13 19:57 | Emergency (ER) | payer OTHER ==
[~2024-05-13] VITALS: Wt 116.1 kg
[2024-05-13 21:01] LABS: BASO # 0.1 10*3/uL (0.0-0.1); BASO % 0.4 % (0.0-1.0); EOS # 0.1 10*3/uL (0.0-0.4); EOS % 0.4 % (1.0-4.0); HEMATOCRIT 39.2 % (42.0-52.0); MEAN CELL VOLUME 86.3 fl (80.0-94.0); MEAN CORPUSCULAR HGB 29.1 pg (27.0-31.0); MEAN CORPUSCULAR HGB CONC 33.7 g/dl (33.0-37.0); MEAN PLATELET VOLUME 9.4 fl (9.6-12.3); MONO # 1.2 10*3/uL (0.1-1.0); MONO % 8.8 % (3.0-9.0); NEUT # 10.5 10*3/uL (2.3-7.9); NEUT % 78.3 % (47.0-73.0); PLATELET COUNT AUTOMATED 244 10*3/uL (130-400); RED BLOOD COUNT 4.54 10*6/uL (4.50-5.90); RED CELL DISTRI WIDTH 12.8 % (0-14.5); WHITE BLOOD COUNT 13.4 10*3/uL (4.8-10.8)
[2024-05-13 21:23] LABS: ALKALINE PHOSPHATASE 100 U/L (46-116); BUN 8 mg/dl (9-23); CHLORIDE 101 mmol/L (98-107); CPK 515 U/L (34-171); POTASSIUM 3.3 mmol/L (3.4-5.1); SGPT/ALT 33 U/L (5-49); TOTAL PROTEIN 7.6 gm/dL (6.0-8.0)
[2024-05-13 21:47] LABS: ETHYL ALCOHOL < 3.0 mg/dl (<3)
[2024-05-13 21:51] LABS: BILIRUBIN Negative (Negative); BLOOD Negative (Negative); CLARITY Clear (Clear); COLOR Yellow (Yellow); GLUCOSE 3+ (Negative); KETONE Trace (Negative); LEUKO ESTERASE Negative (Negative); NITRITE Negative (Negative); PH 5.5 (4.5-8.0); SPECIFIC GRAVITY >= 1.030 (1.001-1.030); UROBILINOGEN 0.2 E.U./dl (0.0-1.0)
[2024-05-13 21:55] LABS: URINE AMPHETAMINES Positive (1000ng/ml); URINE BARBITURATES Negative (200ng/ml); URINE BENZODIAZEPINES Negative (200ng/ml); URINE CANNABINOIDS (THC) Negative (50ng/ml); URINE COCAINE Negative (300ng/ml); URINE METHADONE Negative (300ng/ml); URINE OPIATES Positive (300ng/ml); URINE PHENCYCLIDINE Negative (25ng/ml)
[2024-05-13] MEDS ORDERED: SODIUM CHLORIDE 0.9% 1,000 ML IV ONE (22:05)
[2024-05-13 22:17] LABS: FINE GRANULAR CAST 0-2; MUCOUS 1+; RBC 0-2 rbc/hpf (0-2); WBC 0-2 wbc/hpf (0-5)
[2024-05-13] MEDS ORDERED: POTASSIUM CHLORIDE 20 MEQ TAB PO ONE (22:25)
[2024-05-13] MEDS ORDERED: MAGNESIUM SULFATE 50 ML IV ONE (22:25)
[2024-05-13] MEDS ORDERED: INSULIN REGULAR, HUMAN 1 UNIT/0.01 ML IV ONE (22:25)
[2024-05-14] MEDS ORDERED: LORazepam 1 MG TAB PO ONE (02:55)
[2024-05-14] MEDS ORDERED: diazePAM 10 MG/2 ML SYR IM ONE (13:05)
[2024-05-14] MEDS ORDERED: Haloperidol Lactate 5 MG/ML AMP IM ONE (13:05)
[2024-05-14] MEDS ORDERED: hydrOXYzine pamoate 25 MG CAP PO ONE (23:55)
== END 2024-05-14 13:19 | disposition short-term general hospital (02) ==
LOC: ED 19:57
PROVIDERS: Nurse Practitioner Family
DX: F29 Unspecified psychosis not due to a substance or known physiological condition (principal); F19.10 Other psychoactive substance abuse, uncomplicated; E11.9 Type 2 diabetes mellitus without complications; F15.10 Other stimulant abuse, uncomplicated; F41.9 Anxiety disorder, unspecified; F31.9 Bipolar disorder, unspecified; I10 Essential (primary) hypertension; E78.5 Hyperlipidemia, unspecified; Z90.89 Acquired absence of other organs; Z98.890 Other specified postprocedural states; Z79.899 Other long term (current) drug therapy

== ENCOUNTER 2024-06-13 21:05 | Emergency (ER) | payer OTHER ==
[~2024-06-13] VITALS: Ht 180.3 cm; Wt 117.9 kg
[2024-06-13 21:27] LABS: BASO # 0.1 10*3/uL (0.0-0.1); BASO % 0.4 % (0.0-1.0); EOS % 0.3 % (1.0-4.0); HEMATOCRIT 38.5 % (42.0-52.0); MEAN CELL VOLUME 85.6 fl (80.0-94.0); MEAN CORPUSCULAR HGB 29.3 pg (27.0-31.0); MEAN CORPUSCULAR HGB CONC 34.3 g/dl (33.0-37.0); MEAN PLATELET VOLUME 9.5 fl (9.6-12.3); MONO # 0.7 10*3/uL (0.1-1.0); MONO % 5.7 % (3.0-9.0); NEUT # 9.4 10*3/uL (2.3-7.9); NEUT % 77.2 % (47.0-73.0); PLATELET COUNT AUTOMATED 232 10*3/uL (130-400); RED CELL DISTRI WIDTH 13.1 % (0-14.5); WHITE BLOOD COUNT 12.2 10*3/uL (4.8-10.8)
[2024-06-13 21:31] LABS: BILIRUBIN Negative (Negative); BLOOD Negative (Negative); CLARITY Clear (Clear); COLOR Yellow (Yellow); GLUCOSE Negative (Negative); KETONE Negative (Negative); LEUKO ESTERASE Negative (Negative); NITRITE Negative (Negative); PH 5.5 (4.5-8.0); SPECIFIC GRAVITY <= 1.005 (1.001-1.030); UROBILINOGEN 0.2 E.U./dl (0.0-1.0)
[2024-06-13 21:36] LABS: RBC 0-2 rbc/hpf (0-2); WBC 0-2 wbc/hpf (0-5)
[2024-06-13 21:37] LABS: URINE AMPHETAMINES Negative (1000ng/ml); URINE BARBITURATES Negative (200ng/ml); URINE BENZODIAZEPINES Negative (200ng/ml); URINE CANNABINOIDS (THC) Positive (50ng/ml); URINE COCAINE Positive (300ng/ml); URINE METHADONE Negative (300ng/ml); URINE OPIATES Negative (300ng/ml); URINE PHENCYCLIDINE Negative (25ng/ml)
[2024-06-13 21:46] LABS: ALKALINE PHOSPHATASE 85 U/L (46-116); BUN 11 mg/dl (9-23); CHLORIDE 103 mmol/L (98-107); POTASSIUM 3.7 mmol/L (3.4-5.1); SGPT/ALT 21 U/L (5-49); TOTAL PROTEIN 7.5 gm/dL (6.0-8.0)
[2024-06-13 21:49] LABS: ETHYL ALCOHOL < 3.0 mg/dl (<3)
[2024-06-14] MEDS ORDERED: LORazepam 0.5 MG TAB PO ONE (11:55)
== END 2024-06-14 12:34 ==
LOC: ED 21:05
PROVIDERS: Internal Medicine
DX: F43.21 Adjustment disorder with depressed mood (principal); F41.9 Anxiety disorder, unspecified; F19.10 Other psychoactive substance abuse, uncomplicated; F15.90 Other stimulant use, unspecified, uncomplicated; Z79.899 Other long term (current) drug therapy; Z98.890 Other specified postprocedural states; Z90.89 Acquired absence of other organs; Z87.891 Personal history of nicotine dependence

== ENCOUNTER 2024-08-16 14:07 | Emergency (ER) | payer OTHER ==
[~2024-08-16] VITALS: Ht 180.3 cm; Wt 117.9 kg
[2024-08-16 14:42] LABS: BILIRUBIN 1+ (Negative); BLOOD Negative (Negative); CLARITY Clear (Clear); COLOR Dark Yellow (Yellow); GLUCOSE 1+ (Negative); KETONE 1+ (Negative); LEUKO ESTERASE Negative (Negative); NITRITE Negative (Negative); PH 5.5 (4.5-8.0); SPECIFIC GRAVITY >= 1.030 (1.001-1.030)
[2024-08-16 14:47] LABS: BASO # 0.1 10*3/uL (0.0-0.1); BASO % 0.7 % (0.0-1.0); EOS # 0.1 10*3/uL (0.0-0.4); EOS % 1.2 % (1.0-4.0); HEMATOCRIT 39.6 % (42.0-52.0); MEAN CELL VOLUME 85.3 fl (80.0-94.0); MEAN CORPUSCULAR HGB CONC 35.1 g/dl (33.0-37.0); MEAN PLATELET VOLUME 8.8 fl (9.6-12.3); MONO # 0.6 10*3/uL (0.1-1.0); MONO % 5.6 % (3.0-9.0); NEUT # 7.9 10*3/uL (2.3-7.9); NEUT % 73.1 % (47.0-73.0); PLATELET COUNT AUTOMATED 306 10*3/uL (130-400); RED BLOOD COUNT 4.64 10*6/uL (4.50-5.90); RED CELL DISTRI WIDTH 13.4 % (0-14.5); WHITE BLOOD COUNT 10.7 10*3/uL (4.8-10.8)
[2024-08-16 14:49] LABS: URINE AMPHETAMINES Negative (1000ng/ml); URINE BARBITURATES Negative (200ng/ml); URINE BENZODIAZEPINES Negative (200ng/ml); URINE CANNABINOIDS (THC) Positive (50ng/ml); URINE COCAINE Positive (300ng/ml); URINE METHADONE Negative (300ng/ml); URINE OPIATES Negative (300ng/ml); URINE PHENCYCLIDINE Negative (25ng/ml)
[2024-08-16 15:10] LABS: BUN 9 mg/dl (9-23); CHLORIDE 101 mmol/L (98-107); CPK 99 U/L (34-171); POTASSIUM 3.8 mmol/L (3.4-5.1)
[2024-08-16 15:12] LABS: ETHYL ALCOHOL < 3.0 mg/dl (<3)
[2024-08-16 15:17] LABS: RBC 0-2 rbc/hpf (0-2); WBC 0-2 wbc/hpf (0-5)
[2024-08-16 15:18] LABS: BACTERIA 2+; CALCIUM OXALATE CRYSTALS 1+; EPITHELIAL CELLS 0-2; HYALINE CAST 0-2; MUCOUS 2+
[2024-08-16] MEDS ORDERED: hydrOXYzine pamoate 25 MG CAP PO ONE (17:40)
[2024-08-16] MEDS ORDERED: VISTARIL25 MG PO (18:22)
== END 2024-08-16 18:32 | disposition home or self-care (01) ==
LOC: ED 14:07
PROVIDERS: Physician Assistant Medical
DX: F43.21 Adjustment disorder with depressed mood (principal); F19.10 Other psychoactive substance abuse, uncomplicated; I10 Essential (primary) hypertension; E78.5 Hyperlipidemia, unspecified; E11.9 Type 2 diabetes mellitus without complications; F31.9 Bipolar disorder, unspecified; F41.9 Anxiety disorder, unspecified; Z79.899 Other long term (current) drug therapy; Z90.89 Acquired absence of other organs; Z98.890 Other specified postprocedural states

== ENCOUNTER 2025-01-26 17:23 | Emergency (ER) | payer OTHER ==
[~2025-01-26] VITALS: Ht 180.3 cm; Wt 113.4 kg
[~2025-01-26 17:23] MED LIST changes: +ARIPIPRAZOLE30 MG PO; +CEPHALEXIN500 M1 PO; +DIVALPROEX SOD500 MG PO; +INSULIN LI100 UNIT/1 SQ; +LANTUS100 UNIT/1 SC; +METFORMIN XR500 MG PO; +NATURE'S BLEND F1 MG PO; +PALIPERIDONE ER3 MG PO; +SERTRALINE HYD100 MG PO; +VISTARIL25 MG PO
[2025-01-26] MEDS ORDERED: VISTARIL25 MG PO ×2 (17:29→18:33)
[2025-01-26] MEDS ORDERED: SODIUM CHLORIDE 0.9% 1,000 ML IV ONE (17:30)
[2025-01-26 17:59] LABS: BILIRUBIN Negative (Negative); BLOOD Negative (Negative); CLARITY Clear (Clear); COLOR Yellow (Yellow); KETONE Trace (Negative); LEUKO ESTERASE Negative (Negative); NITRITE Negative (Negative); PH 6.0 (4.5-8.0); SPECIFIC GRAVITY >= 1.030 (1.001-1.030); UROBILINOGEN 1.0 E.U./dl (0.0-1.0)
[2025-01-26 18:03] LABS: BASO # 0.1 10*3/uL (0.0-0.1); BASO % 0.5 % (0.0-1.0); EOS # 0.2 10*3/uL (0.0-0.4); EOS % 1.8 % (1.0-4.0); MEAN CELL VOLUME 87.0 fl (80.0-94.0); MEAN CORPUSCULAR HGB 29.2 pg (27.0-31.0); MEAN PLATELET VOLUME 9.1 fl (9.6-12.3); MONO # 0.9 10*3/uL (0.1-1.0); MONO % 7.7 % (3.0-9.0); NEUT # 8.0 10*3/uL (2.3-7.9); NEUT % 68.6 % (47.0-73.0); NUCLEATED RED BLOOD CELL 0.0 % (0.0-0.0); NUCLEATED RED BLOOD CELL 0.0 10*3/uL (0.0-0.0); PLATELET COUNT AUTOMATED 265 10*3/uL (130-400); RED CELL DISTRI WIDTH 12.8 % (0-14.5); VENOUS BLOOD GAS O2 SAT 85.7 % (60.0-85.0)
[2025-01-26 18:05] LABS: URINE AMPHETAMINES Positive (1000ng/ml); URINE BARBITURATES Negative (200ng/ml); URINE BENZODIAZEPINES Negative (200ng/ml); URINE CANNABINOIDS (THC) Positive (50ng/ml); URINE COCAINE Negative (300ng/ml); URINE METHADONE Negative (300ng/ml); URINE OPIATES Negative (300ng/ml); URINE PHENCYCLIDINE Negative (25ng/ml)
[2025-01-26 18:26] LABS: BUN 15 mg/dl (9-23)
[2025-01-26 18:35] LABS: MUCOUS TRACE; WBC 0-2 wbc/hpf (0-5)
== END 2025-01-26 18:36 | disposition home or self-care (01) ==
LOC: ED 17:23
PROVIDERS: Emergency Medicine
DX: E11.9 Type 2 diabetes mellitus without complications (principal); F15.10 Other stimulant abuse, uncomplicated

== ENCOUNTER 2025-03-28 12:20 | Emergency (ER) | payer OTHER ==
[~2025-03-28] VITALS: Ht 180.3 cm; Wt 111.1 kg
[2025-03-28] MEDS ORDERED: SEPTDS PO (13:04)
[2025-03-28] MEDS ORDERED: Sulfamethoxazole/Trimethopri 1 TAB TAB PO ONE (13:05)
[2025-04-02] MEDS ORDERED: LANTUS100 UNIT/1 SC (17:09)
[2025-04-02] MEDS ORDERED: ARIPIPRAZOLE10 MG PO (17:10)
[2025-04-02] MEDS ORDERED: TRAZODONE50 MG PO (17:10)
[2025-04-02] MEDS ORDERED: ATARAX,VISTARIL50 MG PO (17:10)
== END 2025-03-28 13:23 | disposition home or self-care (01) ==
LOC: ED 12:20
DX: L02.414 Cutaneous abscess of left upper limb (principal); I10 Essential (primary) hypertension; E11.9 Type 2 diabetes mellitus without complications; F20.9 Schizophrenia, unspecified; F41.9 Anxiety disorder, unspecified; F31.9 Bipolar disorder, unspecified; Z90.89 Acquired absence of other organs; Z98.890 Other specified postprocedural states; Z87.891 Personal history of nicotine dependence